=== PATIENT | female | born 1950 | race Caucasian/White ===

== ENCOUNTER 2016-06-27 13:01 | Emergency (ER) | payer OTHER ==
--- NOTE | 2016-06-27 14:48 | XR ---
EXAMINATION TYPE: XR chest 2V DATE OF EXAM: 06/27/2016 2:30 PM COMPARISON: Prior chest x-ray 30 December 2015 HISTORY: Cough TECHNIQUE: Frontal and lateral views of the chest are obtained. FINDINGS: There is no focal air space opacity, pleural effusion, or pneumothorax seen. The cardiac silhouette size is within normal limits. The osseous structures are intact. IMPRESSION: No acute cardiopulmonary process.
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
[2016-06-27 15:47] VITALS: BP 131/79; PULSE 83; RESP 16; TEMP 98.7
== END 2016-06-27 15:46 | disposition home or self-care (01) ==
LOC: EC 13:01
DX: J10.1 Influenza due to other identified influenza virus with other respiratory manifestations (principal); I10 Essential (primary) hypertension; K21.9 Gastro-esophageal reflux disease without esophagitis; Z88.8 Allergy status to other drugs, medicaments and biological substances; Z79.899 Other long term (current) drug therapy; Z88.2 Allergy status to sulfonamides; Z88.1 Allergy status to other antibiotic agents; Z88.5 Allergy status to narcotic agent
CPT/HCPCS: 71020; 87081; 87430; 87502; 99284

== ENCOUNTER → 2016-08-06 | Outpatient (CLI) | payer OTHER ==
--- NOTE | 2016-08-06 17:18 | CT ---
EXAMINATION TYPE: CT lumbar spine wo con DATE OF EXAM: 08/06/2016 8:40 AM COMPARISON: NONE HISTORY: amy flank pain, back and Lt hip pain radiating down Lt leg CT DLP: None, images reconstructed from Abd/Pelvis mGycm CONTRAST: None TECHNIQUE: CT of the lumbar spine is performed on a spiral scan at 3 mm thick sections. Reconstructed images are performed in the coronal and sagittal planes. FINDINGS: T12-L1: No focal disc herniation or significant disc bulge is evident. No spinal canal stenosis or neural foraminal stenosis is present. L1-L2: No focal disc herniation or significant disc bulge is evident. No spinal canal stenosis or n eural foraminal stenosis is present L2-L3: There is mild disc bulge present with anterior thecal sac compression. No AP spinal canal sten osis is present. Neural foramen are patent. L3-L4: Mild disc bulge is present. No spinal canal stenosis or neural foraminal stenosis is present. L4-L5: Broad-based disc bulge is present with anterior thecal sac flattening. Facet hypertrophy is pr esent with posterior lateral thecal sac compression. Neural foramen are patent. L5-S1: There is loss of disc height. Vacuum disc phenomenon is present. No focal disc herniation is e vident. No significant disc bulge is evident. Mild facet hypertrophy is present. Neural foramen are p atent. Vertebral alignment appears normal. Note is made of multiple left inferior pole renal stones IMPRESSION: 1. Disc bulging greatest at L4-5 with anterior thecal sac flattening. 2. Facet hypertrophy L4-5 and L5-S1. 3. Degenerative disc changes and vacuum disc phenomenon L5-S1. 4. Inferior pole left renal stones. No obstruction is evident within the [id number].
--- NOTE | 2016-08-06 17:23 | CT ---
EXAMINATION TYPE: CT abdomen pelvis wo con DATE OF EXAM: 08/06/2016 8:43 AM COMPARISON: 05/19/2010 INDICATION: amy flank pain, back and Lt hip pain radiating down Lt leg DLP: 388.1 mGycm, Automated exposure control for dose reduction was used. CONTRAST: None Study performed without Oral Contrast TECHNIQUE: Axial images were obtained from above the diaphragm to the pubic rami in the axial plane a t 5 mm thick sections. Reconstructed images are reviewed on the computer in the coronal plane. FINDINGS: Limited CT sections are obtained the lung bases. The lung bases are clear. CT ABDOMEN: Liver: Normal Spleen: This appears small. Residual splenules could be present or the spleen could be contracted. No surgical clips are evident. Pancreas: Normal Adrenal glands: The adrenal glands are normal. Gallbladder: Normal Kidneys: No masses are evident. There may be some minimal prominences superior pole left renal collec ting system. Multiple calcifications are at the inferior pole left kidney. The largest measures 0.9 c m. Additional cortical medullary junction calcification on the posterior inferior pole measures 1.8 x 0.7 cm. Additional cortical calcifications more superior within the mid portion of the left kidney. No large calcifications within the right kidney. A few cortical medullary punctate calcifications are present. No hydronephrosis is evident. Mild left hydroureter may be present. No obstructing renal or ureteral stone is evident. No cysts are present. Aorta: Vascular calcification is within the aorta. Inferior vena cava: Normal. CT PELVIS: Loops of bowel within the abdomen and pelvis are normal. There are loops of bowel which are incom pletely distended or lack oral contrast limiting their evaluation. Appendix: Not identified Urinary bladder: Normal. Genitourinary structures: Uterus is not identified. Adnexal regions are clear. No free fluid is withi n the pelvis. Osseous structures: No suspicious lytic or sclerotic lesions. Some facet degenerative changes through the lumbar spine. IMPRESSIONS: 1. Multiple large left renal calcifications without obstruction. Minimal prominence of the left arun l collecting system may be present without an obstructing renal or ureteral stone. 2. Few punctate cortical medullary junction calcifications within the right kidney without obstructio n. 3. Small Spleen is poorly visualized. This could be a infarct the spleen. Posttraumatic or postsurgic al splenule be considered.
== END ==
LOC: RADCTMAIN 07:53
PROVIDERS: ATTEND Family Medicine
DX: M51.26 Other intervertebral disc displacement, lumbar region (principal); M51.37 Other intervertebral disc degeneration, lumbosacral region; N20.0 Calculus of kidney
CPT/HCPCS: 72131; 74176

== ENCOUNTER → 2017-05-03 | Outpatient (CLI) | payer BC ==
--- NOTE | 2017-05-03 15:21 | BD ---
EXAMINATION TYPE: MG DEXA axial skeleton. DATE OF EXAM: 05/03/2017 CLINICAL HISTORY: Height: 60 inches Weight: 144 FRAX RISK QUESTIONS: Alcohol (3 or more units per day): no Family History (Parent hip fracture): no Glucocorticoids (More than 3mos): no (Ex: prednisone, prednisolone, methylprednisolone, dexamethasone, and hydrocortisone). History of Fracture in Adulthood: no Secondary Osteoporosis: 1. Type 1 Diabetes: no 2. Hyperthyroidism: no 3. Menopause before 45: no 4. Malnutrition: no 5. Chronic liver disease: no Rheumatoid Arthritis: no Current Tobacco Use: no RISK FACTORS HISTORY OF: Family History of Osteoporosis: no Active: yes Diet low in dairy products/other sources of calcium: yes because of kidney stone formation Postmenopausal woman: yes Take estrogen and/or progesterone medications: not now How long: hormonal contraceptives about 2 years Lost more than 2 inches in height since high school: no Frequent falls: no Poor Health: no Hyperparathyroidism: no Adrenal Insufficiency: no MEDICATIONS: Prednisone or other steroids: no Thyroid Medications: not now Which medication: Synthroid How Lon or more years Osteoporosis Medications: no Additional Medications: blood pressure meds, just started cholesterol meds Additional History: kidney stones; back pain EXAM MEASUREMENTS: Bone mineral densitometry was performed using the [employer] System. Bone mineral density as measured about the Lumbar spine is: ----- L1-L4(G/cm2): 1.318 T Score Values are as follows: ----- L2: 0.1 ----- L3: 1.2 ----- L4: 2.3 ----- L1-L4: 1.1 Bone mineral density has: Decreased -1.5% since study of: 03/27/2004 Bone mineral density about the R hip (g/cm2): 0.908 (1.040) Bone mineral density about the L hip (g/cm2): 0.908 (1.040) T Score values are as follows: -----R Neck: -0.9 (old study 0.0) -----L Neck: -0.9 (old study 0.0) -----R Total: 0.0 -----L Total: 0.1 (old study 1.3) Bone mineral density 03/27/2004 not completely available on right hip to trend IMPRESSION: No evidence for osteoporosis or osteopenia. NOTE: T-SCORE=SD OF THE YOUNG ADULT MEAN.
== END | disposition home or self-care (01) ==
LOC: RADBDWWP 12:48
PROVIDERS: ATTEND Family Medicine
DX: Z13.820 Encounter for screening for osteoporosis (principal)
CPT/HCPCS: 77080

== ENCOUNTER → 2017-06-03 | Outpatient (CLI) | payer BC, MEDICARE ==
--- NOTE | 2017-06-07 08:46 | MM ---
Reason for exam: screening (asymptomatic). Last mammogram was performed 2 years and 4 months ago. History: Patient is postmenopausal. Ultrasound-guided core biopsy of the left breast, November 14, 2002. Benign cyst aspiration of the left breast. Took hormonal contraceptives for 2 years. Physical Findings: A clinical breast exam by your physician is recommended on an annual basis and results should be correlated with mammographic findings. MG Screening Mammo w CAD Bilateral CC and MLO view(s) were taken. Prior study comparison: February 07, 2015, bilateral MG screening mammo w CAD. February 05, 2014, bilateral MG screening mammo w CAD. The breast tissue is heterogeneously dense. This may lower the sensitivity of mammography. Finding: There is a stable mass in the upper outer quadrant of the left breast back to 2012. No suspicious abnormality. No significant changes in finding since February 07, 2015 and February 05, 2014. ASSESSMENT: Benign, BI-RAD 2 RECOMMENDATION: Routine screening mammogram of both breasts in 1 year.
== END | disposition home or self-care (01) ==
LOC: RADMAMWWP 14:26
PROVIDERS: ATTEND Family Medicine
DX: Z12.31 Encounter for screening mammogram for malignant neoplasm of breast (principal)

== ENCOUNTER → 2017-08-04 | Outpatient (CLI) | payer BC, MEDICARE ==
[2017-08-04 09:57] LABS: Blood Urea Nitrogen 16 mg/dL (7-17)
--- NOTE | 2017-08-04 11:26 | CT ---
EXAMINATION TYPE: CT angio chest DATE OF EXAM: 08/04/2017 COMPARISON: NONE HISTORY: PE. Lymphadenopathy CT DLP: 477.64 mGycm CONTRAST: CT chest with contrast and 3D reconstruction with MIP imaging is performed with IV Contrast, patient injected with 100 ml mL of Omnipaque 350. Contrast-enhanced CT of the chest was performed through the course of the pulmonary arteries with samuel g and mediastinal window settings submitted. 3D reconstruction with MIP imaging was also performed. PULMONARY ARTERIES: The pulmonary arteries and their major tributaries are patent. I do not see dada dence for sizable filling defect to suggest pulmonary embolic process. LUNGS: The lungs are clear and free of infiltrate. No evidence for atelectasis. No pulmonary nodule or mass is detected. No pleural effusion. MEDIASTINUM: Thoracic aorta is of normal caliber,however, evaluation is limited given timing of the contrast bolus. If there is concern for thoracic aortic pathology consider TULIO. Correlate clinicall y . The heart is mildly small sliding-type hiatal hernia. enlarged. No evidence for mediastinal mass . AP window and right paratracheal lymph nodes less than 1 cm. HILAR STRUCTURES: No evidence for mass. No hilar lymph nodes greater than 1 cm. UPPER ABDOMEN: No significant abnormality is seen. IMPRESSION: 1. No evidence for Pulmonary embolism at this time. 2. No evidence for adenopathy. 3. Small sliding-type hiatal hernia.
--- NOTE | 2017-08-04 11:35 | CT ---
EXAMINATION TYPE: CT abdomen pelvis w con DATE OF EXAM: 08/04/2017 COMPARISON: 05/22/2017 HISTORY: PE. Lymphadenopathy. CT DLP: 1257.99 mGycm CONTRAST: CT scan of the abdomen and pelvis is performed with Oral Contrast and with IV Contrast, patient injec ngoc with 100 ml mL of Omnipaque 350. FINDINGS: LUNG BASES-: No visible nodule. No infiltrate. Small sliding-type hiatal hernia. LIVER/GB: No calcified gallstones. Mild hepatic steatosis noted. No space occupying hepatic lesion . Biliary tree is of normal caliber. PANCREAS: No inflammation. No distinct mass. SPLEEN: Stable splenules left upper quadrant. ADRENALS: No nodule. No thickening. KIDNEYS/BLADDER: No hydronephrosis. Stable calcified lesion mid pole left kidney posteriorly. Noelle us nonobstructing calculi left kidney. Diminutive left kidney relative to its right-sided counterpart . Several cystic lesions right kidney remain stable. Urinary bladder grossly unremarkable. BOWEL: Normal bowel caliber. No inflammation. GENITAL ORGANS: Uterus appears surgically absent. LYMPH NODES: Small lymph nodes are within the small bowel mesentery all measure less than 1 cm. No a denopathy greater than 1 cm. No greater than 1cm abdominal or pelvic lymph nodes are appreciated. AORTA: No significant abnormality. OSSEOUS STRUCTURES: No significant abnormality is seen. OTHER: Persistent filling defect within the right common iliac vein unchanged from prior examination and may reflect chronic DVT. IMPRESSION: 1. 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 No significant change in its overall appearance . 2. No evidence for adenopathy greater than 1 cm. 3. Stable nonobstructing left-sided nephrolithiasis.
== END | disposition home or self-care (01) ==
LOC: RADCTMAIN 09:05
PROVIDERS: ATTEND Internal Medicine Hematology & Oncology
DX: K44.9 Diaphragmatic hernia without obstruction or gangrene (principal); I82.521 Chronic embolism and thrombosis of right iliac vein; N20.0 Calculus of kidney; Z86.711 Personal history of pulmonary embolism
CPT/HCPCS: 82565; 84520; 71275; 74177; 36415; Q9967

== ENCOUNTER → 2017-10-04 | Outpatient (CLI) | payer BC, MEDICARE ==
--- NOTE | 2017-10-04 13:17 | XR ---
EXAMINATION TYPE: XR abdomen 1V DATE OF EXAM: 10/04/2017 12:56 PM CLINICAL HISTORY: Kidney stones per order TECHNIQUE: Two supine KUB images of the abdomen are obtained. COMPARISON: CT abdomen and pelvis August 04, 2017. Abdominal x-ray March 16, 2017. FINDINGS: There is redemonstration of multiple left-sided renal calculi with groups of calculi mid an d lower pole level redemonstrated. Largest stones measure up to 12 mm on long axis. There may be inte rval passage of 5 mm calculus in ureter at left L4 transverse process level. No definite right-sided renal calculi are seen. There is overall nonobstructive bowel gas pattern. Loss of normal haustral pattern left colon could r eflect a colitis, correlate clinically. Visualized osseous structures are intact. IMPRESSION: Multiple left-sided renal calculi redemonstrated, possible interval passage of 5 mm calcu jesus into proximal to mid left ureter.
== END | disposition home or self-care (01) ==
LOC: RADXRMAIN 12:43
PROVIDERS: ATTEND Urology
DX: N20.0 Calculus of kidney (principal)
CPT/HCPCS: 74018

== ENCOUNTER 2017-10-05 20:16 | Emergency (ER) | payer BC, MEDICARE ==
[2017-10-05 20:24] VITALS: RESP 18; TEMP 97.6
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
[2017-10-05 21:29] VITALS: BP 122/70; PULSE 94
== END 2017-10-05 21:29 | disposition home or self-care (01) ==
LOC: EC 20:16
DX: L25.9 Unspecified contact dermatitis, unspecified cause (principal); E78.5 Hyperlipidemia, unspecified; I10 Essential (primary) hypertension; G47.30 Sleep apnea, unspecified; Z79.899 Other long term (current) drug therapy; Z88.1 Allergy status to other antibiotic agents; Z88.2 Allergy status to sulfonamides; Z88.5 Allergy status to narcotic agent; Z99.89 Dependence on other enabling machines and devices
CPT/HCPCS: 99282

== ENCOUNTER 2017-10-22 21:22 | Observation (INO) | payer BC, MEDICARE ==
[2017-10-22] MEDS ORDERED: NITROGLYCERIN OINT 1 INCH/GM PACKET TOPICAL STA (22:32)
[2017-10-22] MEDS ORDERED: ASPIRIN 81 MG PO STA (22:32)
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
[2017-10-22 23:10] LABS: Basophils # (A) 0.1 k/uL (0-0.2); Basophils % (A) 1 %; Eosinophils # (A) 0.3 k/uL (0-0.7); Eosinophils % (A) 3 %; HCT 43.8 % (34.0-46.0); HGB 14.2 gm/dL (11.4-16.0); Lymphocytes % (A) 43 %; MCHC 32.4 g/dL (31.0-37.0); MCV 86.5 fL (80.0-100.0); Mean Platelet Volume 6.4; Monocytes % (A) 9 %; Neutrophils # (A) 4.8 k/uL (1.3-7.7); Neutrophils % (A) 42 %; Platelet Count 498 k/uL (150-450); RBC 5.06 m/uL (3.80-5.40); RDW 14.3 % (11.5-15.5); WBC 11.4 k/uL (3.8-10.6)
[2017-10-22 23:13] LABS: Creatine Kinase 65 U/L (30-135)
[2017-10-22 23:14] LABS: ALT 31 U/L (9-52); AST 30 U/L (14-36); Albumin 4.2 g/dL (3.5-5.0); Alkaline Phosphatase 116 U/L (38-126); Anion Gap 12 mmol/L; Blood Urea Nitrogen 16 mg/dL (7-17); Calcium 10.6 mg/dL (8.4-10.2); Carbon Dioxide 26 mmol/L (22-30); Chloride 106 mmol/L (98-107); Glucose 95 mg/dL (74-99); Magnesium 1.9 mg/dL (1.6-2.3); Potassium 4.8 mmol/L (3.5-5.1); Sodium 144 mmol/L (137-145); Total Bilirubin 0.7 mg/dL (0.2-1.3); Total Protein 7.3 g/dL (6.3-8.2)
[2017-10-22 23:19] LABS: Lymphocytes # (A) 4.9 k/uL (1.0-4.8)
[2017-10-22 23:25] LABS: Creatine Kinase MB 0.6 ng/mL (0.0-2.4); Troponin I <0.012 ng/mL (0.000-0.034)
[2017-10-22 23:34] LABS: D-Dimer 0.26 mg/L FEU (<0.60); Prothrombin Time 9.8 sec (9.0-12.0)
[2017-10-22 23:46] LABS: Partial Thromboplastin Time 21.7 sec (22.0-30.0)
[2017-10-23] MEDS ORDERED: NITROGLYCERIN SL TABS 0.4 MG TAB SUBLINGUAL PRN (00:06)
[2017-10-23 00:08] LABS: Anisocytosis (M) Present; Poikilocytosis (M) Present
[2017-10-23 00:11] LABS: Large Platelets Present
[2017-10-23 00:12] LABS: Polychromasia Present
--- NOTE | 2017-10-23 00:13 | XR ---
EXAMINATION TYPE: XR chest 2V DATE OF EXAM: 10/22/2017 COMPARISON: 06/27/2016 HISTORY: Chest pain TECHNIQUE: Frontal and lateral views of the chest are obtained. FINDINGS: Heart and mediastinum are normal. Lungs are clear. Diaphragm is normal. Bony thorax is int act. There are chest leads. IMPRESSION: Normal chest. No change.
[2017-10-23 00:41] VITALS: RESP 16
[2017-10-23 01:27] VITALS: BMI 26.8
[2017-10-23] MEDS ORDERED: NITROGLYCERIN OINT 1 INCH/GM PACKET TOPICAL SCH (06:00)
[2017-10-23 07:08] LABS: Creatine Kinase 493 U/L (30-135)
[2017-10-23 07:21] LABS: Creatine Kinase MB 2.2 ng/mL (0.0-2.4); Troponin I <0.012 ng/mL (0.000-0.034)
[2017-10-23] MEDS ORDERED: ASPIRIN 325 MG TAB PO SCH (09:00)
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
--- NOTE | 2017-10-23 09:13 | P.DS ---
Providers Date of admission: 10/23/17 00:06 Expected date of discharge: 10/23/17 Attending physician: Luis Ryan Consults: 10/23/17 00:06 Consult Physician Urgent Consulting Provider: [facility] Consult Reason/Comments: Chest pain Do you want consulting provider notified?: Yes Primary care physician: Luis Ryan - Discharge Diagnosis(es) (1) towel folder (current) use of anticoagulants Current Visit: Yes Status: Acute (2) History of pulmonary embolism Current Visit: Yes Status: Acute (3) History of DVT (deep vein thrombosis) Current Visit: Yes Status: Acute (4) Zoster Current Visit: Yes Status: Acute (5) Post herpetic neuralgia Current Visit: Yes Status: Acute (6) Abdominal pain Current Visit: No Status: Acute (7) Hypercalcemia Current Visit: No Status: Acute (8) Hypertension Current Visit: No Status: Acute (9) Pulmonary embolism Current Visit: No Status: Acute Priority: High Hospital Course: his is a pleasant 67-year-old white female well-known to me. She has a history of DVT and PE him an admission in May 2017. She is currently anticoagulated on Elequis. She been experiencing symptoms of right-sided burning searing pain and rash. This is diagnosed as shingles. She's had a course of acyclovir, which is still on. Gabapentin was started to control pain. Her symptoms worsen and on fears of recurrent pulmonary embolism she return to the emergency room. She also has a history of kidney stones. Currently she denies any chest pains, pressures, shortness of breath, nausea, vomiting. She does complain of right sided abdominal pain at the rash site extending from her midline around to her back in a dermatomal pattern. This is the only pain she is experiencing. Last night the pain seemed to be a slightly higher than this but still on her abdomen. Her symptoms continue this morning. Troponins 2 are negative. EKG is negative. Final diagnosis: Right-sided abdominal pain Postherpetic neuralgia Zoster History DVT/pulmonary embolism Long-term anticoagulation. Hypertension Hyperlipidemia GERD Patient Condition at Discharge: Fair Plan - Discharge Summary New Discharge Prescriptions: Continue Metoprolol Tartrate [Lopressor] 25 mg PO DAILY Lisinopril [Prinivil] 20 mg PO DAILY Atorvastatin [Lipitor] 40 mg PO DAILY Apixaban [Eliquis] 5 mg PO BID #60 tab Pantoprazole [Protonix] 40 mg PO DAILY #30 tab Changed Gabapentin [Neurontin] 300 mg PO TID #90 cap Discharge Medication List Lisinopril [Prinivil] 20 mg PO DAILY 11/15/14 [History] Metoprolol Tartrate [Lopressor] 25 mg PO DAILY 11/15/14 [History] Atorvastatin [Lipitor] 40 mg PO DAILY 05/22/17 [History] Apixaban [Eliquis] 5 mg PO BID #60 tab 05/26/17 [Rx] Pantoprazole [Protonix] 40 mg PO DAILY #30 tab 05/26/17 [Rx] Gabapentin [Neurontin] 300 mg PO TID #90 cap 10/23/17 [Rx] Follow up Appointment(s)/Referral(s): Luis Ryan MD [Primary Care Provider] - 1-2 days Ila Ortiz MD [STAFF PHYSICIAN] - 1 Week Discharge Disposition: HOME SELF-CARE
[2017-10-23 09:26] VITALS: BP 122/65; PULSE 71; TEMP 98
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
== END 2017-10-23 10:27 | disposition home or self-care (01) ==
LOC: EC 21:22 → 3SUR 10-23 00:06
PROVIDERS: ADMIT Family Medicine; ATTEND Family Medicine
DX: R07.89 Other chest pain (principal); B02.9 Zoster without complications; B02.29 Other postherpetic nervous system involvement; E83.52 Hypercalcemia; K21.9 Gastro-esophageal reflux disease without esophagitis; I10 Essential (primary) hypertension; E78.5 Hyperlipidemia, unspecified; G47.30 Sleep apnea, unspecified; Z99.89 Dependence on other enabling machines and devices; G43.909 Migraine, unspecified, not intractable, without status migrainosus; K57.90 Diverticulosis of intestine, part unspecified, without perforation or abscess without bleeding; E07.9 Disorder of thyroid, unspecified; Z86.711 Personal history of pulmonary embolism; Z87.442 Personal history of urinary calculi; Z86.718 Personal history of other venous thrombosis and embolism; Z79.01 Long term (current) use of anticoagulants; Z79.899 Other long term (current) drug therapy; Z79.52 Long term (current) use of systemic steroids; Z88.1 Allergy status to other antibiotic agents; Z88.5 Allergy status to narcotic agent; Z88.2 Allergy status to sulfonamides; Z82.49 Family history of ischemic heart disease and other diseases of the circulatory system
CPT/HCPCS: 99285 ×2; 36415; 93005; 85379; 80053; 82550 ×2; 82553 ×2; 83735; 84484 ×2; 85025; 85610; 85730; 71046; G0378

== ENCOUNTER 2017-10-25 16:33 | Emergency (ER) | payer BC, MEDICARE ==
[2017-10-25 19:19] LABS: Appearance,Urine Cloudy (Clear); Bacteria,Urine Rare /hpf; Basophils # (A) 0.1 k/uL (0-0.2); Basophils % (A) 0 %; Bilirubin,Urine Negative (Negative); Blood,Urine Moderate (Negative); Color,Urine Yellow; Eosinophils # (A) 0.2 k/uL (0-0.7); Eosinophils % (A) 1 %; Glucose,Urine (UA) Negative (Negative); HGB 14.8 gm/dL (11.4-16.0); Ketones,Urine Negative (Negative); Leukocyte Esterase,Urine Moderate (Negative); Lymphocytes # (A) 3.2 k/uL (1.0-4.8); Lymphocytes % (A) 16 %; MCH 29.6 pg (25.0-35.0); MCHC 34.3 g/dL (31.0-37.0); MCV 86.2 fL (80.0-100.0); Mean Platelet Volume 6.6; Monocytes % (A) 5 %; Mucus,Urine Rare /hpf; Neutrophils # (A) 14.7 k/uL (1.3-7.7); Neutrophils % (A) 76 %; Nitrite,Urine Negative (Negative); Platelet Count 492 k/uL (150-450); Protein,Urine Trace (Negative); RBC 4.99 m/uL (3.80-5.40); RBC,Urine 110 /hpf (0-5); RDW 14.2 % (11.5-15.5); Specific Gravity,Urine 1.015 (1.001-1.035); Squamous Epithelial Cell,Urine 2 /hpf (0-4); Urobilinogen,Urine <2.0 mg/dL (<2.0); WBC 19.4 k/uL (3.8-10.6); WBC,Urine 24 /hpf (0-5)
[2017-10-25 19:36] LABS: ALT 32 U/L (9-52); AST 27 U/L (14-36); Albumin 4.5 g/dL (3.5-5.0); Alkaline Phosphatase 112 U/L (38-126); Amylase 59 U/L (30-110); Anion Gap 16 mmol/L; Blood Urea Nitrogen 19 mg/dL (7-17); Calcium 10.4 mg/dL (8.4-10.2); Carbon Dioxide 21 mmol/L (22-30); Chloride 107 mmol/L (98-107); Glucose 112 mg/dL (74-99); Lipase 118 U/L (23-300); Potassium 4.4 mmol/L (3.5-5.1); Sodium 144 mmol/L (137-145); Total Bilirubin 0.5 mg/dL (0.2-1.3); Total Protein 7.5 g/dL (6.3-8.2)
[2017-10-25] MEDS ORDERED: ONDANSETRON 4 MG/2 ML VIAL IVP STA (20:21)
[2017-10-25] MEDS ORDERED: SODIUM CHLORIDE 0.9% 1,000 ML IV STA (20:21)
[2017-10-25] MEDS ORDERED: ACETAMINOPHEN IV (For NPO) 1,000 MG in EMPTY BAG 1 BAG IVPB STA (20:23)
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
--- NOTE | 2017-10-25 21:05 | CT ---
EXAMINATION TYPE: CT abdomen pelvis wo con DATE OF EXAM: 10/25/2017 COMPARISON: 08/04/2017 HISTORY: Left side flank pain and vomiting. CT DLP: 446.7 mGycm Automated exposure control for dose reduction was used. TECHNIQUE: Helical acquisition of images was performed from the lung bases through the pelvis. FINDINGS: There is some minimal subsegmental atelectasis at the lung bases. Liver shows no focal defect. Bile d ucts are not dilated. There is a small spleen or accessory spleens. There is no evidence of pancreati c mass. There is no adrenal mass. There is moderately severe left-sided hydronephrosis and hydroureter. There is 7 mm calculus in the lower left ureter. Right kidney appears normal without hydronephrosis. There is no retroperitoneal adenopathy. There is a 12 mm small bowel mesenteric lymph node. There are a few diverticula in the sigmoid colon. There is no sign of diverticulitis. Bladder distend s smoothly. There is no evidence of a bowel obstruction. There is no free air. There is no ascites. T here are multiple left renal calcifications. I see no bony destructive process. IMPRESSION: OBSTRUCTING CALCULUS IN THE LOWER LEFT URETER WITH MODERATE LEFT HYDRONEPHROSIS AND HYDROURETER. THIS IS NEW COMPARED TO THE OLD EXAM. MULTIPLE LEFT RENAL CALCULI.
[2017-10-25] MEDS ORDERED: KETOROLAC 30 MG/ML 1 ML VIAL IVP STA (21:22)
[2017-10-25 23:06] VITALS: BP 125/68; PULSE 76; RESP 16; TEMP 97.5
== END 2017-10-25 23:05 | disposition home or self-care (01) ==
LOC: EC 16:33
DX: N13.2 Hydronephrosis with renal and ureteral calculous obstruction (principal); E78.5 Hyperlipidemia, unspecified; I10 Essential (primary) hypertension; G47.30 Sleep apnea, unspecified; Z99.89 Dependence on other enabling machines and devices; Z86.711 Personal history of pulmonary embolism; Z86.718 Personal history of other venous thrombosis and embolism; Z87.19 Personal history of other diseases of the digestive system; Z90.710 Acquired absence of both cervix and uterus; Z98.51 Tubal ligation status; Z90.49 Acquired absence of other specified parts of digestive tract; Z79.899 Other long term (current) drug therapy; Z88.1 Allergy status to other antibiotic agents; Z88.2 Allergy status to sulfonamides; Z88.5 Allergy status to narcotic agent
CPT/HCPCS: 36415; 80053; 82150; 83690; 85025; 81001; 74176; 99284; 96374; 96375 ×2; 96361; J2405; J1885; J0131

== ENCOUNTER → 2017-11-02 | Outpatient (CLI) | payer BC, MEDICARE ==
--- NOTE | 2017-11-02 15:21 | XR ---
EXAMINATION TYPE: XR KUB DATE OF EXAM: 11/02/2017 COMPARISON: 03/16/2017 INDICATION: Renal calculi TECHNIQUE: Single view abdomen upright view FINDINGS: There is a normal bowel gas pattern. Psoas margins are normal. No organomegaly is present. Multiple calcifications over the superior and inferior pole left kidney. The largest calcification is estimated at 0.6 x 1.1 cm. IMPRESSION: 1. Multiple stable left renal calcifications.
== END | disposition home or self-care (01) ==
LOC: RADXRMAIN 14:44
PROVIDERS: ATTEND Urology
DX: N28.89 Other specified disorders of kidney and ureter (principal)
CPT/HCPCS: 74018

== ENCOUNTER 2017-12-10 22:26 | Emergency (ER) | payer BC, MEDICARE, OTHER ==
[2017-12-10 22:53] VITALS: BP 123/69; PULSE 71; RESP 18; TEMP 97.9
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
== END 2017-12-10 23:33 | disposition home or self-care (01) ==
LOC: EC 22:26
DX: S09.90XA Unspecified injury of head, initial encounter (principal); E78.5 Hyperlipidemia, unspecified; I10 Essential (primary) hypertension; G47.30 Sleep apnea, unspecified; Z99.89 Dependence on other enabling machines and devices; Z79.899 Other long term (current) drug therapy; Z88.2 Allergy status to sulfonamides; Z88.5 Allergy status to narcotic agent; Z88.8 Allergy status to other drugs, medicaments and biological substances; W50.1XXA Accidental kick by another person, initial encounter; Y92.89 Other specified places as the place of occurrence of the external cause; Y99.0 Civilian activity done for income or pay
CPT/HCPCS: 99283

== ENCOUNTER → 2017-12-12 | Outpatient (CLI) | payer OTHER ==
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
== END | disposition home or self-care (01) ==
LOC: RADCTMAIN 12:16
PROVIDERS: ATTEND Emergency Medicine
DX: S00.83XA Contusion of other part of head, initial encounter (principal); J34.2 Deviated nasal septum; M89.8X8 Other specified disorders of bone, other site
CPT/HCPCS: 70486

== ENCOUNTER → 2017-12-13 | Outpatient (CLI) | payer OTHER ==
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
== END | disposition home or self-care (01) ==
LOC: RADCTMAIN 10:55
PROVIDERS: ATTEND Emergency Medicine
DX: G31.1 Senile degeneration of brain, not elsewhere classified (principal)
CPT/HCPCS: 70450

== ENCOUNTER 2018-01-22 13:37 | Emergency (ER) | payer BC, MEDICARE ==
[2018-01-22 14:04] VITALS: BP 127/84; PULSE 75; RESP 16; TEMP 98.2
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
== END 2018-01-22 15:40 | disposition home or self-care (01) ==
LOC: EC 13:37
DX: T63.441A Toxic effect of venom of bees, accidental (unintentional), initial encounter (principal); E78.5 Hyperlipidemia, unspecified; I10 Essential (primary) hypertension; E07.9 Disorder of thyroid, unspecified; G47.30 Sleep apnea, unspecified; Z99.89 Dependence on other enabling machines and devices; Z86.711 Personal history of pulmonary embolism; Z86.718 Personal history of other venous thrombosis and embolism; Z79.899 Other long term (current) drug therapy; Z88.1 Allergy status to other antibiotic agents; Z88.5 Allergy status to narcotic agent; Z88.2 Allergy status to sulfonamides
CPT/HCPCS: 99282

== ENCOUNTER → 2018-01-26 | Outpatient (CLI) | payer BC, MEDICARE ==
[2018-01-26 11:48] LABS: Basophils # (A) 0.1 k/uL (0-0.2); Basophils % (A) 1 %; Eosinophils # (A) 0.3 k/uL (0-0.7); Eosinophils % (A) 3 %; HCT 47.1 % (34.0-46.0); HGB 15.2 gm/dL (11.4-16.0); Lymphocytes # (A) 3.8 k/uL (1.0-4.8); Lymphocytes % (A) 45 %; MCH 28.8 pg (25.0-35.0); MCHC 32.3 g/dL (31.0-37.0); MCV 89.1 fL (80.0-100.0); Mean Platelet Volume 6.6; Monocytes # (A) 0.7 k/uL (0-1.0); Monocytes % (A) 9 %; Neutrophils # (A) 3.4 k/uL (1.3-7.7); Neutrophils % (A) 40 %; Platelet Count 518 k/uL (150-450); RBC 5.29 m/uL (3.80-5.40); RDW 13.1 % (11.5-15.5); WBC 8.4 k/uL (3.8-10.6)
[2018-01-26 12:05] LABS: Anion Gap 8 mmol/L; Blood Urea Nitrogen 13 mg/dL (7-17); Calcium 9.7 mg/dL (8.4-10.2); Carbon Dioxide 25 mmol/L (22-30); Chloride 109 mmol/L (98-107); Glucose 86 mg/dL (74-99); Potassium 4.7 mmol/L (3.5-5.1); Sodium 142 mmol/L (137-145)
[2018-01-26 12:37] LABS: Appearance,Urine Clear (Clear); Bacteria,Urine Rare /hpf; Bilirubin,Urine Negative (Negative); Blood,Urine Negative (Negative); Color,Urine Light Yellow; Glucose,Urine (UA) Negative (Negative); Ketones,Urine Negative (Negative); Leukocyte Esterase,Urine Large (Negative); Nitrite,Urine Negative (Negative); Protein,Urine Negative (Negative); RBC,Urine 1 /hpf (0-5); Specific Gravity,Urine 1.005 (1.001-1.035); Squamous Epithelial Cell,Urine <1 /hpf (0-4); Urobilinogen,Urine <2.0 mg/dL (<2.0); WBC,Urine 43 /hpf (0-5)
== END | disposition home or self-care (01) ==
LOC: LABPAT 10:57
PROVIDERS: ATTEND Urology
DX: Z01.812 Encounter for preprocedural laboratory examination (principal); N20.0 Calculus of kidney; E78.00 Pure hypercholesterolemia, unspecified; R35.0 Frequency of micturition; R31.29 Other microscopic hematuria
CPT/HCPCS: 36415; 80048; 81001; 85025; 87086

== ENCOUNTER 2018-02-01 06:14 | Observation (INO) | payer BC, MEDICARE ==
[2018-01-27 15:46] VITALS: BMI 27.3
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
[~2018-02-01 06:14] MED LIST: DEXAMETHASONE SOD PHOSPHATE 10 MG/ML 1 ML VIAL IV ONE; LIDOCAINE 1% 20 ML VIAL (10MG/ML) FOR IV START INTRADERMA PRN; MIDAZOLAM 2 MG/2 ML VIAL IV PRN; ONDANSETRON 4 MG/2 ML VIAL IVP ONE; ceFAZolin IN SWFI 2 GM/20 ML SYRINGE IVP ONE; fentaNYL (PF) 50 MCG/ML 2 ML AMP IV PRN; metroNIDAZOLE-NS PMX 500 MG in SALINE 1 100ML.BAG IVPB ONE
[2018-02-01] MEDS ORDERED: ONDANSETRON 4 MG/2 ML VIAL ONE (06:37)
[2018-02-01] MEDS: LACTATED RINGERS 1,000 ML IV SCH ×2 (06:58→12:18)
[2018-02-01] MEDS ORDERED: ePHEDrine SULFATE/0.9% NACL/PF 50 MG/5 ML SYRINGE IV ONE (07:28)
[2018-02-01] MEDS ORDERED: SUCCINYLCHOLINE CHLORIDE 100 MG/5 ML SYR IV ONE (07:28)
[2018-02-01] MEDS ORDERED: MIDAZOLAM 2 MG/2 ML VIAL ONE (07:28)
[2018-02-01] MEDS ORDERED: ROCURONIUM BROMIDE 10 MG/ML 10 ML VIAL IV ONE (07:28)
[2018-02-01] MEDS ORDERED: NEOSTIGMINE 1 MG/ML 10 ML VIAL ONE (07:28)
[2018-02-01] MEDS ORDERED: GLYCOPYRROLATE 0.2 MG/ML 2 ML VIAL ONE (07:28)
[2018-02-01] MEDS ORDERED: LIDOCAINE 1% INJ 10MG/ML (20 ML MDV) ONE (07:28)
[2018-02-01] MEDS ORDERED: PROPOFOL 10 MG/ML 20 ML VIAL IV ONE (07:28)
--- NOTE | 2018-02-01 07:37 | XR ---
EXAMINATION TYPE: XR KUB DATE OF EXAM: 02/01/2018 COMPARISON: 11/02/2017 INDICATION: Kidney stones TECHNIQUE: Single view abdomen frontal projection FINDINGS: There is a normal bowel gas pattern. Psoas margins are normal. No organomegaly is present. Multiple calcifications over the left kidney are stable. IMPRESSION: 1. Multiple stable left renal calcifications.
[2018-02-01] MEDS ORDERED: IOPAMIDOL-370 50ML BTL MISCELLANE ONE (08:05)
[2018-02-01] MEDS ORDERED: MAG HYDROX/AL HYDROX/SIMETH 30 ML CUP PO PRN (09:38)
[2018-02-01] MEDS ORDERED: ACETAMINOPHEN TAB 325 MG TAB PO PRN (09:38)
[2018-02-01] MEDS ORDERED: HYDROmorphone PCA 5 MG/25 ML SYRINGE IV PRN (09:40)
[2018-02-01] MEDS ORDERED: NALOXONE 0.4 MG/ML 1 ML VIAL IV PRN ×2 (09:40→09:51)
--- NOTE | 2018-02-01 09:49 | P.OP ---
Date of Procedure: 02/01/18 Preoperative Diagnosis: Left renal calculi Postoperative Diagnosis: Same, infundibular stenosis with calyceal diverticula Procedure(s) Performed: Cystoscopy, placement of 5-[place] occluding balloon catheter, percutaneous nephrostomy (Dr. Muir) percutaneous nephrostolithotomy infundibulotomy 2 upper pole calyx, calyceal diverticula, laser lithotripsy, placement of 10-[place] J nephrostomy Anesthesia: GETA Surgeon: Rodrigo Pedro Estimated Blood Loss (ml): 100 Pathology: other (Stone) Condition: stable Disposition: PACU Indications for Procedure: The patient is a 67-year-old female with recurrent nephrolithiasis. She has multiple renal stones causing discomfort. She comes for percutaneous nephrostolithotomy Description of Procedure: The patient is brought to the operating suite. She is given a general anesthesia on the transport gurney. She's placed in a frog position with a sterile prep and drape. Cystoscopy Foroblique lens and 22-[place] sheath identifies the left ureteral orifice which is intubated with a 5-[place] occluding balloon catheter. Catheters passed up into the renal pelvis and the secured to a 16-[place] Leslie. She's placed in a prone position. Sterile prep and drape was administered. Dr. Muir of radiology performed percutaneous access to the left lower pole calyx. We dilated to 30-[place]. We introduced the rigid sheath into the collecting system. We introduced the rigid scope into the collecting system and remove multiple stones in the left lower pole calyx. I then inspect under fluoroscopy the remaining stones in the upper pole calyx. Based on computed tomography scan there is a stone in a calyceal diverticulum and the other is parenchymal. I eventually pass a flexible nephroscope up to the calyx that contained the stone and finding significant infundibular stenosis. I cannot pass an 035 wire through the infundibulum. With the 200 laser probe I then do an infundibulotomy an open up into the calyceal diverticula. With the same 200 laser probe I break the stone into tiny pieces and flushes it out of the calyx. I do not attempt to go after the parenchymal stone. At this point time there are no remaining stones. I flush any debris out of the collecting system. A 10-[place] J nephrostomy tubes is placed and it is secured the skin with 2-0 silk. The patient's awake and returned recovery in good condition. Blood loss is approximately 100 mL. She will be placed in the hospital postoperatively.
[2018-02-01] MEDS ORDERED: fentaNYL PCA 300 MCG/30 ML SYRINGE IV PRN (09:51)
[2018-02-01] MEDS: DEXTROSE 5%-0.45% NACL 1,000 ML IV SCH ×2 (11:59→20:50)
[2018-02-01] MEDS: KETOROLAC 30 MG/ML 1 ML VIAL IVP SCH ×3 (12:21→23:32)
--- NOTE | 2018-02-01 12:44 | FL ---
EXAMINATION TYPE: FL Perc Nephrostomy New Access DATE OF EXAM: 02/01/2018 COMPARISON: NONE HISTORY: Nephrolithiasis. PROCEDURE: Maximal barrier technique was utilized. The skin overlying the left kidney was localized using fluor oscopy and the overlying skin prepped and draped. Lidocaine used for local anesthesia. Skin mike wa s made with a scalpel. Access was gained under fluoroscopy, following placement of a ureteral occlus ion balloon by the referring clinician and instillation of air in the renal collecting system with a 21-gauge needle to the lower pole left kidney. A suitable posterior calyx was chosen. A 0.018 inch wire was advanced. The access site was dilated and subsequently a sheath was advanced into the arun l pelvis following dilation with balloon along the tract. Urine returned in the hub of the catheter. The patient underwent nephrolithotomy by the referring clinician. The patient remained in stable co ndition without complication. The patient was discharged to observation. IMPRESSION: STATUS POST NEPHROSTOMY PLACEMENT FOR NEPHROLITHOTOMY WITH FLUOROSCOPIC GUIDANCE. THIS PROCEDURE PER FORMED BY THE UNDERSIGNED. 2 minutes 47 seconds fluoroscopy time, 2 intraoperative C-arm images docum ent the procedure
[2018-02-01] MEDS: GABAPENTIN 100 MG CAP PO SCH ×2 (16:22→21:00)
[2018-02-02] MEDS: KETOROLAC 30 MG/ML 1 ML VIAL IVP SCH ×4 (05:41→23:43)
[2018-02-02] MEDS: DEXTROSE 5%-0.45% NACL 1,000 ML IV SCH ×3 (05:43→23:44)
[2018-02-02] MEDS ORDERED: HYDROcodone/APAP 5-325MG 1 EACH TAB PO PRN (06:43)
--- NOTE | 2018-02-02 06:45 | P.DS ---
Providers Date of admission: 02/01/18 21:20 Attending physician: Rodrigo Pedro Primary care physician: [facility] Course: The patient was admitted yesterday 02/01/2018 for a left percutaneous nephrostolithotomy. She underwent this without difficulty. She did have an infundibulotomy to a calyx where there is a calyceal diverticulum stone. The stone was removed. She has one parenchymal stone. She did well overnight. Her pain is relatively long to control. If she ambulates has pain control and voids without difficulty she'll be discharged home later today. She'll go home with a nephrostomy tube she'll follow-up in the office next week for nephrostomy tube removal. Postoperative instructions have been given. She is given a prescription of [place]. Patient Condition at Discharge: Good Plan - Discharge Summary Discharge Rx Participant: Yes New Discharge Prescriptions: New HYDROcodone/APAP 5-325MG [[place] 5-325] 1 tab PO Q4HR PRN #14 tab PRN Reason: Pain Control No Action Metoprolol Tartrate [Lopressor] 50 mg PO DAILY Atorvastatin [Lipitor] 20 mg PO DAILY Gabapentin [Neurontin] 100 mg PO TID Ascorbic Acid [Vitamin C] 1,000 mg PO DAILY Garlic 1 tab PO DAILY Ergocalciferol (Vitamin D2) [Vitamin D2] 50,000 unit PO Q7D Lisinopril [Prinivil] 20 mg PO DAILY Discharge Medication List Metoprolol Tartrate [Lopressor] 50 mg PO DAILY 11/15/14 [History] Atorvastatin [Lipitor] 20 mg PO DAILY 05/22/17 [History] Ascorbic Acid [Vitamin C] 1,000 mg PO DAILY 10/25/17 [History] Gabapentin [Neurontin] 100 mg PO TID 10/25/17 [History] Garlic 1 tab PO DAILY 10/25/17 [History] Ergocalciferol (Vitamin D2) [Vitamin D2] 50,000 unit PO Q7D 01/27/18 [History] Lisinopril [Prinivil] 20 mg PO DAILY 02/01/18 [History] HYDROcodone/APAP 5-325MG [[place] 5-325] 1 tab PO Q4HR PRN #14 tab 02/02/18 [Rx] Follow up Appointment(s)/Referral(s): Rodrigo Pedro MD [STAFF PHYSICIAN] - 02/07/18 Activity/Diet/Wound Care/Special Instructions: Home with Nephrostomy tube Discharge Disposition: HOME SELF-CARE
[2018-02-02 08:22] VITALS: RESP 16
[2018-02-02] MEDS: METOPROLOL TARTRATE 50 MG TAB PO SCH (08:50)
[2018-02-02] MEDS: GABAPENTIN 100 MG CAP PO SCH ×3 (08:50→21:19)
[2018-02-02] MEDS: ONDANSETRON 4 MG/2 ML VIAL IVP PRN ×2 (12:54→23:48)
[2018-02-03] MEDS: KETOROLAC 30 MG/ML 1 ML VIAL IVP SCH ×2 (05:09→13:46)
[2018-02-03] MEDS: ONDANSETRON 4 MG/2 ML VIAL IVP PRN (05:10)
[2018-02-03 08:04] VITALS: BP 129/78; PULSE 72; TEMP 98.5
[2018-02-03] MEDS: METOPROLOL TARTRATE 50 MG TAB PO SCH (10:09)
[2018-02-03] MEDS: GABAPENTIN 100 MG CAP PO SCH (10:09)
== END 2018-02-03 14:05 | disposition home or self-care (01) ==
LOC: OR 06:14 → 3SUR 09:25 → OR 21:44
PROVIDERS: ADMIT Urology; ATTEND Urology
DX: N20.0 Calculus of kidney (principal); N28.89 Other specified disorders of kidney and ureter; J44.9 Chronic obstructive pulmonary disease, unspecified; K21.9 Gastro-esophageal reflux disease without esophagitis; I10 Essential (primary) hypertension; E78.5 Hyperlipidemia, unspecified; E04.9 Nontoxic goiter, unspecified; G43.909 Migraine, unspecified, not intractable, without status migrainosus; G47.33 Obstructive sleep apnea (adult) (pediatric); Z99.89 Dependence on other enabling machines and devices; K57.90 Diverticulosis of intestine, part unspecified, without perforation or abscess without bleeding; G62.9 Polyneuropathy, unspecified; F40.240 Claustrophobia; Z79.899 Other long term (current) drug therapy; Z88.1 Allergy status to other antibiotic agents; Z88.2 Allergy status to sulfonamides; Z88.5 Allergy status to narcotic agent; Z86.711 Personal history of pulmonary embolism; Z87.442 Personal history of urinary calculi; Z87.820 Personal history of traumatic brain injury; Z86.718 Personal history of other venous thrombosis and embolism; Z90.710 Acquired absence of both cervix and uterus; Z82.49 Family history of ischemic heart disease and other diseases of the circulatory system
CPT/HCPCS: 50081; 94760 ×3; 94762 ×2; 86900; 86901; 86850; 82365; 50432; 74018; G0378 ×3; C1769 ×6; C2628; C1729 ×2; C1894; J2250; J1100; J2710; J2405 ×3; J2001; J1885 ×3; J3010; J0330; J2704; J0690; Q9967

== ENCOUNTER → 2018-07-03 | Outpatient (CLI) | payer MEDICARE ==
--- NOTE | 2018-07-04 15:08 | MM ---
Reason for exam: screening (asymptomatic). Last mammogram was performed 1 year and 1 month ago. History: Patient is postmenopausal. Ultrasound-guided core biopsy of the left breast, November 14, 2002. Benign cyst aspiration of the left breast. Took hormonal contraceptives for 2 years. Physical Findings: A clinical breast exam by your physician is recommended on an annual basis and results should be correlated with mammographic findings. MG 3D Screening Mammo W/Cad Bilateral CC and MLO view(s) were taken. Prior study comparison: June 03, 2017, bilateral MG screening mammo w CAD. February 07, 2015, bilateral MG screening mammo w CAD. The breast tissue is heterogeneously dense. This may lower the sensitivity of mammography. There is chronic nodularity bilaterally. There is no discrete abnormality. No significant changes when compared with prior studies. ASSESSMENT: Benign, BI-RAD 2 RECOMMENDATION: Routine screening mammogram of both breasts in 1 year.
== END ==
LOC: RADMAMWWP 14:30
PROVIDERS: ATTEND Family Medicine
DX: Z12.31 Encounter for screening mammogram for malignant neoplasm of breast (principal)
CPT/HCPCS: 77063; 77067

== ENCOUNTER → 2018-08-22 | Outpatient (CLI) | payer MEDICARE ==
--- NOTE | 2018-08-22 11:19 | CT ---
EXAMINATION TYPE: CT brain wo con DATE OF EXAM: 08/22/2018 COMPARISON: 12/13/2017 HISTORY: 68-year-old female Headache and visual disturbances TECHNIQUE: Examination was done in axial plane without intravenous contrast. Coronal and sagittal r econstructions performed. CT DLP: 1017 mGycm Automated exposure control for dose reduction was used. FINDINGS: There is no evidence of acute intracranial hemorrhage, acute ischemic changes, mass, mass-effect, or extra-axial fluid collection. There is no effacement of cerebral sulci or basal subarachnoid cister ns. There is no hydrocephalus. There is no midline shift. Warren-white matter distinction is preserv ed. Orbits and globes appear intact. Leftward nasal septal deviation. Visualized paranasal sinuses mastoi d air cells are clear. IMPRESSION: Stable exam without acute intracranial abnormality seen.
== END | disposition home or self-care (01) ==
LOC: RADCTMAIN 10:51
PROVIDERS: ATTEND Nurse Practitioner Family
DX: H53.9 Unspecified visual disturbance (principal); R51 Headache; Z88.5 Allergy status to narcotic agent; Z88.2 Allergy status to sulfonamides; Z88.4 Allergy status to anesthetic agent
CPT/HCPCS: 70450

== ENCOUNTER 2018-09-18 12:46 | Inpatient (IN) | payer MEDICARE ==
[2018-09-18] MEDS ORDERED: SODIUM CHLORIDE 0.9% 1,000 ML IV STA (13:07)
[2018-09-18] MEDS ORDERED: DIPHENOX-ATROP STARTER PACK 8 TAB BTL PO STA (13:08)
[2018-09-18] MEDS ORDERED: ACETAMINOPHEN TAB 500 MG TAB PO STA (13:08)
[2018-09-18] MEDS ORDERED: ONDANSETRON 4 MG/2 ML VIAL IVP STA (13:08)
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
[2018-09-18 14:00] LABS: Appearance,Urine Clear (Clear); Bilirubin,Urine Negative (Negative); Blood,Urine Negative (Negative); Color,Urine Yellow; Glucose,Urine (UA) Negative (Negative); Ketones,Urine Negative (Negative); Leukocyte Esterase,Urine Negative (Negative); Nitrite,Urine Negative (Negative); Protein,Urine Trace (Negative); Urobilinogen,Urine <2.0 mg/dL (<2.0)
[2018-09-18 14:28] LABS: Basophils % (A) 0 %; Eosinophils # (A) 0.2 k/uL (0-0.7); Eosinophils % (A) 1 %; HCT 52.9 % (34.0-46.0); Lymphocytes # (A) 0.5 k/uL (1.0-4.8); Lymphocytes % (A) 2 %; MCH 28.4 pg (25.0-35.0); MCHC 32.1 g/dL (31.0-37.0); MCV 88.6 fL (80.0-100.0); Mean Platelet Volume 6.3; Monocytes # (A) 0.7 k/uL (0-1.0); Monocytes % (A) 3 %; Neutrophils # (A) 19.1 k/uL (1.3-7.7); Neutrophils % (A) 93 %; Platelet Count 457 k/uL (150-450); RBC 5.98 m/uL (3.80-5.40); RDW 13.6 % (11.5-15.5); WBC 20.6 k/uL (3.8-10.6)
[2018-09-18 14:38] LABS: ALT 32 U/L (9-52); AST 28 U/L (14-36); Albumin 4.9 g/dL (3.5-5.0); Alkaline Phosphatase 108 U/L (38-126); Amylase 49 U/L (30-110); Anion Gap 14 mmol/L; Blood Urea Nitrogen 24 mg/dL (7-17); Calcium 10.4 mg/dL (8.4-10.2); Carbon Dioxide 19 mmol/L (22-30); Chloride 110 mmol/L (98-107); Glucose 125 mg/dL (74-99); Lipase 70 U/L (23-300); Potassium 4.8 mmol/L (3.5-5.1); Sodium 143 mmol/L (137-145); Total Bilirubin 0.9 mg/dL (0.2-1.3); Total Protein 8.5 g/dL (6.3-8.2)
--- NOTE | 2018-09-18 15:21 | XR ---
EXAMINATION TYPE: XR chest 2V DATE OF EXAM: 09/18/2018 COMPARISON: 10/22/2017 HISTORY: 68-year-old female with abdominal pain TECHNIQUE: PA and lateral views FINDINGS: The cardiomediastinal silhouette, aorta, and pulmonary vasculature are within normal limits. Mild int erstitial prominence is a chronic appearance. Otherwise, lungs and pleural spaces are clear. IMPRESSION: No acute cardiopulmonary process.
[2018-09-18] MEDS ORDERED: SODIUM CHLORIDE 0.9% 1,000 ML IV ONE (15:58)
[2018-09-18] MEDS ORDERED: ONDANSETRON 4 MG/2 ML VIAL IVP PRN (15:59)
[2018-09-18] MEDS ORDERED: DIPHENOX-ATROP 2.5-0.025 MG 1 EACH TAB PO PRN (15:59)
[2018-09-18] MEDS ORDERED: METOCLOPRAMIDE 5 MG/ML 2 ML VIAL IVP STA (16:28)
[2018-09-18] MEDS ORDERED: SODIUM CHLORIDE 0.9% 500 ML 250 ML IV ONE (18:31)
[2018-09-18] MEDS: METOPROLOL TARTRATE 50 MG TAB PO SCH (18:56)
--- NOTE | 2018-09-18 19:38 | CT ---
EXAMINATION TYPE: CT abdomen wo con DATE OF EXAM: 09/18/2018 HISTORY: abdominal pain CT DLP: 332.9 mGycm. Automated Exposure Control for Dose Reduction was Utilized. TECHNIQUE: CT scan of the abdomen is performed without oral or IV contrast. COMPARISON: CT abdomen and pelvis October 25, 2017 FINDINGS: Within the limitations of a non-contrast study, the following observations are made. LUNG BASES: No significant abnormality is appreciated. LIVER/GB: No significant abnormality is appreciated. PANCREAS: No significant abnormality is seen. SPLEEN: Scattered small splenule left upper quadrant are redemonstrated. ADRENALS: Slightly thickened bilateral adrenal gland limb suggest benign hyperplasia unchanged from p rior. KIDNEYS: Calcifications throughout mid aspect left kidney may be dystrophic axial image 46 they are u nchanged in appearance from prior study versus renal calculi. Additional 2 mm calcification or calcul us lower pole left kidney axial image 55 is redemonstrated. There is interval improvement in calculus burden lower pole level from prior CT. No hydronephrosis or obstructing ureter calculi are clearly s een bilaterally. BOWEL: Stable small size hiatal hernia. Mild wall thickening left colon with diverticula is identifie d. Finding presumed product of poor distention, a mild colitis should be excluded clinically. No susp icious small or large bowel dilatation. LYMPH NODES: No greater than 1cm abdominal lymph nodes are appreciated. OSSEOUS STRUCTURES: Moderate disc space narrowing with vacuum disc phenomenon L5-S1 level is present. Facet arthropathy lower lumbar spine is seen. OTHER: No significant additional abnormality is seen. IMPRESSION: Interval improvement in renal calculi lower pole left kidney. Interval improvement in lef t-sided hydronephrosis. No new or acute finding is clearly seen to account for patient's symptoms of diffuse nonspecific abdominal pain.
[2018-09-18 20:02] LABS: Basophils % (A) 0 %; Eosinophils # (A) 0.1 k/uL (0-0.7); Eosinophils % (A) 1 %; HCT 45.1 % (34.0-46.0); HGB 14.6 gm/dL (11.4-16.0); Lymphocytes # (A) 0.8 k/uL (1.0-4.8); Lymphocytes % (A) 5 %; MCH 28.8 pg (25.0-35.0); MCHC 32.3 g/dL (31.0-37.0); Mean Platelet Volume 7.3; Monocytes # (A) 0.6 k/uL (0-1.0); Monocytes % (A) 4 %; Neutrophils # (A) 13.5 k/uL (1.3-7.7); Neutrophils % (A) 89 %; Platelet Count 449 k/uL (150-450); RBC 5.07 m/uL (3.80-5.40); RDW 14.1 % (11.5-15.5); WBC 15.3 k/uL (3.8-10.6)
[2018-09-19] MEDS: ACETAMINOPHEN TAB 325 MG TAB PO PRN ×2 (03:01→12:43)
[2018-09-19] MEDS: METOPROLOL TARTRATE 50 MG TAB PO SCH (10:03)
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
[2018-09-19] MEDS: PANTOPRAZOLE 40 MG/10 ML VIAL IVP SCH (17:19)
[2018-09-20] MEDS: METOPROLOL TARTRATE 50 MG TAB PO SCH (07:18)
[2018-09-20] MEDS: PANTOPRAZOLE 40 MG/10 ML VIAL IVP SCH (07:19)
[2018-09-20 08:53] VITALS: BP 130/77; PULSE 69; RESP 12; TEMP 98.6
[2018-09-20 09:53] LABS: HCT 44.8 % (34.0-46.0); HGB 14.4 gm/dL (11.4-16.0); MCH 28.5 pg (25.0-35.0); MCHC 32.2 g/dL (31.0-37.0); MCV 88.5 fL (80.0-100.0); Mean Platelet Volume 6.3; Platelet Count 477 k/uL (150-450); RBC 5.06 m/uL (3.80-5.40); RDW 13.8 % (11.5-15.5); WBC 7.4 k/uL (3.8-10.6)
[2018-09-20 10:05] LABS: Anion Gap 6 mmol/L; Blood Urea Nitrogen 10 mg/dL (7-17); Calcium 9.4 mg/dL (8.4-10.2); Carbon Dioxide 25 mmol/L (22-30); Chloride 111 mmol/L (98-107); Glucose 116 mg/dL (74-99); Sodium 142 mmol/L (137-145)
[2018-09-20 10:14] LABS: Potassium 4.3 mmol/L (3.5-5.1)
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
== END 2018-09-20 14:31 | disposition home or self-care (01) | DRG 392 ==
LOC: EC 12:46 → 1SOBS 15:58 → OBSVTOIN 09-19 07:55 → 4SSUR 09-19 10:23
PROVIDERS: ADMIT Family Medicine; ATTEND Family Medicine
DX: A08.4 Viral intestinal infection, unspecified (principal); E87.2 Acidosis; F40.240 Claustrophobia; I10 Essential (primary) hypertension; N20.0 Calculus of kidney; Z87.442 Personal history of urinary calculi; Z79.899 Other long term (current) drug therapy; Z82.49 Family history of ischemic heart disease and other diseases of the circulatory system; Z86.711 Personal history of pulmonary embolism; Z86.718 Personal history of other venous thrombosis and embolism; Z90.710 Acquired absence of both cervix and uterus; Z90.81 Acquired absence of spleen; Z87.820 Personal history of traumatic brain injury; G43.909 Migraine, unspecified, not intractable, without status migrainosus; Z88.8 Allergy status to other drugs, medicaments and biological substances
CPT/HCPCS: 36415; 71046; 74150; 80048; 80053; 81003; 82150; 83605; 83690; 85025; 85027; 87040; 87502; 96361; 96365; 96375; 99285

== ENCOUNTER 2018-09-30 13:53 | Emergency (ER) | payer MEDICARE ==
[2018-09-30 14:06] VITALS: RESP 18
[2018-09-30] MEDS ORDERED: KETOROLAC 60 MG/2 ML VIAL IM STA (14:22)
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
--- NOTE | 2018-09-30 14:56 | XR ---
EXAMINATION TYPE: XR Hip Complete LT DATE OF EXAM: 09/30/2018 COMPARISON: NONE HISTORY: Hip pain TECHNIQUE: 2 views FINDINGS: I see no fracture nor dislocation. Hip joint space is fairly normal. Sacroiliac joint appea rs normal. IMPRESSION: Normal left hip exam.
--- NOTE | 2018-09-30 14:57 | XR ---
EXAMINATION TYPE: XR lumbar spine 2 or 3V DATE OF EXAM: 09/30/2018 COMPARISON: NONE HISTORY: Hip pain TECHNIQUE: 3 views FINDINGS: Lumbar vertebra have normal alignment. There is narrowing at L5-S1 disc with vacuum disc. T here is no compression fracture. Posterior elements are intact. Sacroiliac joints appear normal. IMPRESSION: Mild spondylosis at L5-S1. No fracture.
--- NOTE | 2018-09-30 15:24 | US ---
EXAMINATION TYPE: US venous doppler duplex LE LT DATE OF EXAM: 09/30/2018 2:23 PM COMPARISON: CLINICAL HISTORY: Pain. left leg pain. No redness. No swelling. Not on blood thinners. Hx of DVT in right leg. SIDE PERFORMED: Left TECHNIQUE: The lower extremity deep venous system is examined utilizing real time linear array sonog zonia with graded compression, doppler sonography and color-flow sonography. VESSELS IMAGED: External Iliac Vein (EIV) Common Femoral Vein Deep Femoral Vein Greater Saphenous Vein * Femoral Vein Popliteal Vein Small Saphenous Vein * Proximal Calf Veins (* superficial vessels) Left Leg: Negative for DVT IMPRESSION: No evidence of deep venous thrombosis in the left leg.
[2018-09-30 16:29] VITALS: BP 150/89; PULSE 59; TEMP 98.6
== END 2018-09-30 16:27 | disposition home or self-care (01) ==
LOC: EC 13:53
DX: M54.16 Radiculopathy, lumbar region (principal); M47.817 Spondylosis without myelopathy or radiculopathy, lumbosacral region; I10 Essential (primary) hypertension; Z79.899 Other long term (current) drug therapy; Z88.1 Allergy status to other antibiotic agents; Z88.2 Allergy status to sulfonamides; Z88.5 Allergy status to narcotic agent; Z86.718 Personal history of other venous thrombosis and embolism; Z86.711 Personal history of pulmonary embolism
CPT/HCPCS: 72100; 73502; 93971; 99284; 96372; J1885

== ENCOUNTER 2019-02-02 10:38 | Emergency (ER) | payer MEDICARE ==
[2019-02-02 10:45] VITALS: RESP 18; TEMP 98
[2019-02-02] MEDS ORDERED: ASPIRIN 81 MG PO STA (11:10)
[2019-02-02] MEDS ORDERED: SODIUM CHLORIDE 0.9% 500 ML 500 ML IV STA (11:10)
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
[2019-02-02 11:44] LABS: Basophils # (A) 0.1 k/uL (0-0.2); Basophils % (A) 1 %; Eosinophils # (A) 0.2 k/uL (0-0.7); Eosinophils % (A) 2 %; HCT 47.3 % (34.0-46.0); HGB 15.7 gm/dL (11.4-16.0); Lymphocytes # (A) 3.4 k/uL (1.0-4.8); Lymphocytes % (A) 34 %; MCH 29.3 pg (25.0-35.0); MCHC 33.2 g/dL (31.0-37.0); Mean Platelet Volume 7.2; Monocytes # (A) 0.5 k/uL (0-1.0); Monocytes % (A) 5 %; Neutrophils # (A) 5.5 k/uL (1.3-7.7); Neutrophils % (A) 56 %; Platelet Count 546 k/uL (150-450); RBC 5.38 m/uL (3.80-5.40); RDW 14.1 % (11.5-15.5); WBC 9.9 k/uL (3.8-10.6)
[2019-02-02 11:53] LABS: ALT 23 U/L (9-52); AST 28 U/L (14-36); African American GFR (CKD) >90 (>60 ml/min/1.73 sqM); Albumin 4.3 g/dL (3.5-5.0); Alkaline Phosphatase 119 U/L (38-126); Amylase 57 U/L (30-110); Anion Gap 10 mmol/L; Blood Urea Nitrogen 17 mg/dL (7-17); Calcium 10.1 mg/dL (8.4-10.2); Carbon Dioxide 24 mmol/L (22-30); Chloride 109 mmol/L (98-107); Glucose 140 mg/dL (74-99); Magnesium 1.8 mg/dL (1.6-2.3); Potassium 4.2 mmol/L (3.5-5.1); Sodium 143 mmol/L (137-145); Total Bilirubin 0.4 mg/dL (0.2-1.3); Total Protein 7.6 g/dL (6.3-8.2)
[2019-02-02 12:24] LABS: D-Dimer 0.51 mg/L FEU (<0.60); INR 0.9 (<1.2); Prothrombin Time 9.7 sec (9.0-12.0)
[2019-02-02 12:29] LABS: Partial Thromboplastin Time 21.9 sec (22.0-30.0)
--- NOTE | 2019-02-02 12:42 | XR ---
EXAMINATION TYPE: XR chest 2V DATE OF EXAM: 02/02/2019 COMPARISON: 09/18/2018 HISTORY: 68 year-old female abdominal pain TECHNIQUE: PA and lateral views FINDINGS: Heart upper limits of normal in size. Mild elongation thoracic aorta. Mild diffuse interstitial promi nence as a chronic appearance. No consolidation or pleural effusion. IMPRESSION: Borderline heart size. Chronic appearing changes. No definite acute process.
[2019-02-02 15:58] VITALS: BP 117/79; PULSE 84
== END 2019-02-02 15:58 | disposition home or self-care (01) ==
LOC: EC 10:38
DX: R07.89 Other chest pain (principal); D47.3 Essential (hemorrhagic) thrombocythemia; I10 Essential (primary) hypertension; Z88.1 Allergy status to other antibiotic agents; Z88.2 Allergy status to sulfonamides; Z88.5 Allergy status to narcotic agent; Z79.899 Other long term (current) drug therapy; Z82.49 Family history of ischemic heart disease and other diseases of the circulatory system
CPT/HCPCS: 36415; 71046; 80053; 82150; 83690; 83735; 83880; 84484; 85025; 85379; 85610; 85730; 93005; 99285

== ENCOUNTER → 2019-03-21 | Outpatient (CLI) | payer MEDICARE ==
--- NOTE | 2019-03-21 10:20 | MM ---
Reason for exam: follow-up at short interval from prior study. Last mammogram was performed 9 months ago. History: Patient is postmenopausal. Ultrasound-guided core biopsy of the left breast, November 14, 2002. Benign cyst aspiration of the left breast. Took hormonal contraceptives for 2 years. Physical Findings: Nurse Summary: 1cm nodule in the right breast at 9 and 11 o'clock, a 1cm nodule in the left breast at 2 o'clock (nurse kp). MG 3D Diag Mammo W/Cad JACLYN Bilateral CC and MLO view(s) were taken. Prior study comparison: July 03, 2018, bilateral MG 3d screening mammo w/cad. June 03, 2017, bilateral MG screening mammo w CAD. The breast tissue is heterogeneously dense. This may lower the sensitivity of mammography. There is chronic nodularity in the left breast. There is a vague increased density with non-discrete boarders adjacent to right breast BB's. These results were verbally communicated with the patient and result sheet given to the patient on 03/21/19. ASSESSMENT: Incomplete: need additional imaging evaluation, BI-RAD 0 RECOMMENDATION: Ultrasound of both breasts.
--- NOTE | 2019-03-21 10:25 | USB ---
Reason for exam: additional evaluation requested from prior study. History: Patient is postmenopausal. Ultrasound-guided core biopsy of the left breast, November 14, 2002. Benign cyst aspiration of the left breast. Took hormonal contraceptives for 2 years. US Breast Limited BILAT Right limited breast ultrasound including focal area of concern, retroareolar and axilla demonstrates a 9 x 5 x 6mm oval lymph node at 9 o'clock BB, a 8 x 6 x 6mm oval lymph node at 10 o'clock, a 3 x 3 x 3mm irregular, hypoechoic lesion at 8 o'clock, possible shadowing, biopsy recommended and a 7mm oval lymph node at the axilla tail. Left limited breast ultrasound including focal area of concern, retroareolar and axilla demonstrates a 3 x 2 x 3mm oval, cystic lesion at 2 o'clock and a 8mm oval lymph node at the axilla tail. These results were verbally communicated with the patient and result sheet given to the patient on 03/21/19. ASSESSMENT: Suspicious, BI-RAD 4 RECOMMENDATION: Ultrasound core biopsy of the right breast. (8 o'clock) Called Dr. Ryan and Dr. Cardona's office with mammographic findings and has scheduled an appointment for the patient for 05/10/19 at 11:[address] Rae. Biopsy scheduled for 04/11/19 at 12:20. PRELIMINARY REPORT CALLED AND FAXED TO DR. RAE ON 03/21/19.
== END | disposition home or self-care (01) ==
LOC: RADMAMWWP 07:35
PROVIDERS: ATTEND Nurse Practitioner Women's Health
DX: N64.4 Mastodynia (principal); N63.10 Unspecified lump in the right breast, unspecified quadrant
CPT/HCPCS: 77066; 76642; G0279; 77062

== ENCOUNTER → 2019-04-11 | Day surgery (SDC) | payer MEDICARE ==
[2019-04-11 11:35] VITALS: RESP 12
[2019-04-11 12:31] VITALS: BP 125/81; PULSE 65; TEMP 98.6
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
== END ==
LOC: RADUSWWP 11:20
PROVIDERS: ATTEND Surgery
DX: D24.1 Benign neoplasm of right breast (principal); N60.11 Diffuse cystic mastopathy of right breast; R92.8 Other abnormal and inconclusive findings on diagnostic imaging of breast; Z88.1 Allergy status to other antibiotic agents; Z88.5 Allergy status to narcotic agent; Z88.2 Allergy status to sulfonamides
CPT/HCPCS: 88305; 77065; 19083; A4648; J2001

== ENCOUNTER → 2019-07-26 | Outpatient (CLI) | payer MEDICARE ==
--- NOTE | 2019-07-26 16:05 | XR ---
EXAMINATION TYPE: XR chest 2V DATE OF EXAM: 07/26/2019 COMPARISON: 02/02/2019 HISTORY: 69-year-old female cough and fever TECHNIQUE: Frontal and lateral views FINDINGS: Heart upper limits of normal in size. Aorta within normal limits. Mild diffuse interstitial prominenc e. No consolidation or pleural effusion. IMPRESSION: Interstitial prominence may reflect rhonchi or asthma. No focal infiltrate seen.
== END | disposition home or self-care (01) ==
LOC: RADXRMAIN 14:17
PROVIDERS: ATTEND Family Medicine
DX: R91.8 Other nonspecific abnormal finding of lung field (principal); R05 Cough; R50.9 Fever, unspecified
CPT/HCPCS: 71046; 87502

== ENCOUNTER → 2019-08-07 | Outpatient (CLI) | payer MEDICARE | END | disposition home or self-care (01) | LOC: CPPFTMAIN 10:45 | PROVIDERS: ATTEND Family Medicine | DX: J98.8 Other specified respiratory disorders (principal) | CPT/HCPCS: 94060; 94726; 94729 ==

== ENCOUNTER → 2020-05-23 | Outpatient (CLI) | payer MEDICARE ==
--- NOTE | 2020-05-23 15:40 | US ---
EXAMINATION TYPE: US thyroid st tissue head/neck DATE OF EXAM: 05/23/2020 COMPARISON: US CLINICAL HISTORY: E01.0. F/U GLAND SIZE: Right Lobe: 5.4 x 2.2 x 1.7 cm Overall Parenchyma: heterogenous Left Lobe: 6.7 x 2.2 x 2.8 cm Overall Parenchyma: heterogeneous Isthmus Thickness: 0.2 cm NODULES RIGHT: # of nodules measured on right: 2 1. 3.6 X 1.7 x 2.9 cm solid or almost completely solid, hypoechoic nodule, which is wider than tall , with smooth margins, without echogenic foci. Prior size: 3.0 x 1.6 x 2.1 cm 2. 0.7 X 0.4 x 0.6 cm mixed cystic and solid, hypoechoic nodule, which is wider than tall, with smo oth margins, without echogenic foci. Prior size: 0.5 x 0.3 x 0.5 cm LEFT: # of nodules measured on left: 2 1. 3.6 X 2.3 x 3.4 cm solid or almost completely solid, hypoechoic nodule, which is wider than tall , with smooth margins, without echogenic foci. Prior size: 3.5 x 2.4 x 2.0 cm 2. 1.7 X 1.2 x 1.5 cm mixed cystic and solid, hypoechoic nodule, which is wider than tall, with smo oth margins, without echogenic foci. Prior size: 1.3 x 0.9 x 1.4 cm Bilateral neck scanned, no evidence of lymphadenopathy. Bilateral nodules increased in size when comp ared to previous. IMPRESSION: 1. Enlarging left lobe thyroid nodule 2. Enlarging right lobe thyroid nodule 2017 ACR TI-RADS LEVEL: 2 *Highest TI-RADS level nodule reported
== END | disposition home or self-care (01) ==
LOC: RADUSWWP 13:29
PROVIDERS: ATTEND Family Medicine
DX: E04.2 Nontoxic multinodular goiter (principal); Z88.2 Allergy status to sulfonamides; Z88.6 Allergy status to analgesic agent; Z88.5 Allergy status to narcotic agent
CPT/HCPCS: 76536

== ENCOUNTER 2020-06-19 09:53 | Day surgery (SDC) | payer MEDICARE ==
[2020-06-19 10:21] VITALS: RESP 16; TEMP 98.2
[2020-06-19 11:52] VITALS: BP 155/76; PULSE 70
--- NOTE | 2020-06-19 11:52 | US ---
ULTRASOUND GUIDED FNA THYROID BIOPSY: CLINICAL HISTORY: Request for right and left thyroid nodule biopsy FINDINGS: The procedure was explained to the patient. The risks, complications, benefits and alternatives were discussed and any questions were answered. Informed consent was obtained. Patient was placed supin e on the ultrasound table and prepped and draped in the usual sterile fashion. Utilizing a 25 gauge needle, five passes were made into the requested right thyroid nodule and left thyroid nodule. Patient was stable throughout the procedure. Pathology is pending. All elements of maximal barrier technique were utilized. IMPRESSION: 1. Successful ultrasound guided FNA thyroid biopsy. Note is made that only a single nodule could be seen on the left side measuring approximately 5.3 cm. Prior report suggested there are 2 distinct nod ules which was not present on today's exam and appeared to represent one large nodule.
== END 2020-06-19 11:35 | disposition home or self-care (01) ==
LOC: RADPROMAIN 09:53
PROVIDERS: ATTEND Family Medicine
DX: E04.2 Nontoxic multinodular goiter (principal)
CPT/HCPCS: 10005; 10006; 88173; 88305

== ENCOUNTER → 2020-07-24 | Outpatient (CLI) | payer MEDICARE ==
--- NOTE | 2020-07-24 13:40 | MM ---
Reason for exam: additional evaluation requested from prior study. Last mammogram was performed 1 year and 3 months ago. History: Patient is postmenopausal. Benign US biopsy breast VAD RT of the right breast, April 11, 2019. Ultrasound-guided core biopsy of the left breast, November 14, 2002. Benign cyst aspiration of the left breast. Took hormonal contraceptives for 2 years. Physical Findings: Nurse did not find any significant physical abnormalities on exam. MG Diagnostic Mammo w CAD JACLYN Bilateral CC and MLO view(s) were taken. Prior study comparison: April 11, 2019, right breast MG diagnostic mammo RT wo CAD. March 21, 2019, bilateral MG 3d diag mammo w/cad JACLYN. The breast tissue is heterogeneously dense. This may lower the sensitivity of mammography. Previous mammotome biopsy in the right breast. There is chronic nodularity in the left breast. Stable axillary nodes bilaterally. No significant new findings when compared with previous films. These results were verbally communicated with the patient and result sheet given to the patient on 07/24/20. ASSESSMENT: Benign, BI-RAD 2 RECOMMENDATION: Routine screening mammogram of both breasts in 1 year.
== END | disposition home or self-care (01) ==
LOC: RADMAMWWP 10:40
PROVIDERS: ATTEND Family Medicine
DX: R92.8 Other abnormal and inconclusive findings on diagnostic imaging of breast (principal)
CPT/HCPCS: 77066

== ENCOUNTER → 2020-10-15 | Outpatient (CLI) | payer MEDICARE ==
[2020-10-15 10:51] VITALS: BP 154/77; PULSE 75; RESP 18; TEMP 98.1
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
== END ==
LOC: PNWHC3 10:38
PROVIDERS: ATTEND Hospitalist
DX: M47.26 Other spondylosis with radiculopathy, lumbar region (principal); M51.16 Intervertebral disc disorders with radiculopathy, lumbar region; E66.9 Obesity, unspecified; J44.9 Chronic obstructive pulmonary disease, unspecified; Z86.718 Personal history of other venous thrombosis and embolism; K21.9 Gastro-esophageal reflux disease without esophagitis; I10 Essential (primary) hypertension; M19.90 Unspecified osteoarthritis, unspecified site; Z79.899 Other long term (current) drug therapy; Z88.2 Allergy status to sulfonamides; Z88.5 Allergy status to narcotic agent; Z88.6 Allergy status to analgesic agent; Z88.8 Allergy status to other drugs, medicaments and biological substances; Z68.30 Body mass index [BMI] 30.0-30.9, adult
CPT/HCPCS: 99211

== ENCOUNTER 2021-04-04 16:07 | Emergency (ER) | payer MEDICARE ==
[2021-04-04 17:02] LABS: Appearance,Urine Clear (Clear); Bilirubin,Urine Negative (Negative); Blood,Urine Negative (Negative); Color,Urine Yellow; Glucose,Urine (UA) Negative (Negative); Ketones,Urine Negative (Negative); Leukocyte Esterase,Urine Negative (Negative); Nitrite,Urine Negative (Negative); PH, Urine 6.5 (5.0-8.0); Protein,Urine Negative (Negative); Specific Gravity,Urine 1.013 (1.001-1.035); Urobilinogen,Urine <2.0 mg/dL (<2.0)
[2021-04-04] MEDS ORDERED: SODIUM CHLORIDE 0.9% 500 ML 500 ML IV STA (18:45)
[2021-04-04] MEDS ORDERED: HYDROmorphone 0.5 MG/0.5 ML SYRINGE IVP STA (18:45)
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
[2021-04-04 19:28] LABS: Basophils # (A) 0.1 k/uL (0-0.2); Basophils % (A) 1 %; Eosinophils # (A) 0.3 k/uL (0-0.7); Eosinophils % (A) 2 %; HGB 15.9 gm/dL (11.4-16.0); Lymphocytes % (A) 29 %; MCHC 31.8 g/dL (31.0-37.0); MCV 91.2 fL (80.0-100.0); Mean Platelet Volume 7.1; Monocytes # (A) 0.9 k/uL (0-1.0); Monocytes % (A) 6 %; Neutrophils # (A) 8.1 k/uL (1.3-7.7); Neutrophils % (A) 59 %; Platelet Count 531 k/uL (150-450); RBC 5.48 m/uL (3.80-5.40); RDW 13.3 % (11.5-15.5); WBC 13.7 k/uL (3.8-10.6)
[2021-04-04 19:55] LABS: INR 0.9 (<1.2); Partial Thromboplastin Time 22.3 sec (22.0-30.0); Prothrombin Time 9.9 sec (9.0-12.0)
[2021-04-04 19:57] LABS: ALT 22 U/L (4-34); AST 34 U/L (14-36); African American GFR (CKD) >90 (>60 ml/min/1.73 sqM); Albumin 4.3 g/dL (3.5-5.0); Alkaline Phosphatase 108 U/L (38-126); Amylase 58 U/L (30-110); Anion Gap 10 mmol/L; Blood Urea Nitrogen 15 mg/dL (7-17); Calcium 9.5 mg/dL (8.4-10.2); Carbon Dioxide 20 mmol/L (22-30); Chloride 109 mmol/L (98-107); Glucose 101 mg/dL (74-99); Lipase 110 U/L (23-300); Non-African American GFR(CKD) >90 (>60 ml/min/1.73 sqM); Sodium 139 mmol/L (137-145); Total Bilirubin 0.7 mg/dL (0.2-1.3); Total Protein 7.9 g/dL (6.3-8.2)
[2021-04-04 20:00] LABS: Potassium 5.2 mmol/L (3.5-5.1)
--- NOTE | 2021-04-04 20:55 | CT ---
EXAMINATION TYPE: CT abdomen pelvis w con DATE OF EXAM: 04/04/2021 COMPARISON: 09/18/2018 HISTORY: Abdominal pain, hx diverticulits, kidney stones CT DLP: 1138.2 mGycm Automated exposure control for dose reduction was used. CONTRAST: Performed with IV Contrast, patient injected with 100 mL of Isovue 300. There is mild subsegmental atelectasis left lung base. There is no pleural effusion. Heart is borderl ine enlarged. There is no pericardial effusion. Liver spleen stomach pancreas appear intact. Bile ducts are not dilated. Gallbladder is intact. There is no adrenal mass. Kidneys show satisfactory contrast opacification. There is no hydronephrosi s. There are some left-sided renal cortical calcifications anteriorly and posteriorly. No suspicious renal mass. Ureters are not dilated. There is no retroperitoneal adenopathy. Bladder distends smoothl y. There is no inguinal hernia. There is no free fluid in the pelvis. There is no mesenteric edema. There is no ascites or free air. There is no bowel obstruction. Appendi x is not seen. There is no sign of thickened appendix. There are some sigmoid diverticula. There is no evidence of diverticulitis. The lumbar vertebra have normal alignment. There is narrowing at L5-S1 disc space with vacuum disc an d spurring. Bony pelvis is intact. The hip joints are intact. IMPRESSION: Minimal diverticulosis without diverticulitis. Left-sided renal parenchymal calcifications consistent with scarring and not significantly different than old exam.
[2021-04-04 21:22] VITALS: BP 151/83; PULSE 68; RESP 18; TEMP 98.1
== END 2021-04-04 21:22 | disposition home or self-care (01) ==
LOC: EC 16:07
DX: K57.30 Diverticulosis of large intestine without perforation or abscess without bleeding (principal); Z88.8 Allergy status to other drugs, medicaments and biological substances; Z88.3 Allergy status to other anti-infective agents; Z88.2 Allergy status to sulfonamides; Z88.5 Allergy status to narcotic agent
CPT/HCPCS: 36415; 93005; 80053; 82150; 83605; 83690; 84484; 85025; 85610; 85730; 81003; 74177; 99284; 96360; 96361; Q9967

== ENCOUNTER 2021-07-14 22:37 | Emergency (ER) | payer MEDICARE ==
[2021-07-14 22:44] VITALS: BP 148/80; PULSE 86; RESP 16; TEMP 97.3
[2021-07-14] MEDS ORDERED: FAMOTIDINE 20 MG TAB PO STA (23:26)
[2021-07-14] MEDS ORDERED: diphenhydrAMINE 50 MG/ML 1 ML VIAL IM STA (23:26)
[2021-07-14] MEDS ORDERED: predniSONE 20 MG TAB PO STA (23:27)
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
== END 2021-07-15 00:53 | disposition home or self-care (01) ==
LOC: EC 22:37
DX: L50.9 Urticaria, unspecified (principal); R21 Rash and other nonspecific skin eruption; I10 Essential (primary) hypertension; Z88.6 Allergy status to analgesic agent; Z88.1 Allergy status to other antibiotic agents; Z88.2 Allergy status to sulfonamides; Z88.5 Allergy status to narcotic agent
CPT/HCPCS: 99282; 96372; J1200; J7512

== ENCOUNTER → 2021-08-12 | Outpatient (CLI) | payer MEDICARE ==
--- NOTE | 2021-08-12 13:56 | MM ---
Reason for exam: screening (asymptomatic). Last mammogram was performed 1 year and 1 month ago. History: Patient is postmenopausal. Benign US biopsy breast VAD RT of the right breast, April 11, 2019. Ultrasound-guided core biopsy of the left breast, November 14, 2002. Benign cyst aspiration of the left breast. Took hormonal contraceptives for 2 years. Physical Findings: A clinical breast exam by your physician is recommended on an annual basis and results should be correlated with mammographic findings. MG 3D Screening Mammo W/Cad Bilateral CC and MLO view(s) were taken. Prior study comparison: July 24, 2020, bilateral MG diagnostic mammo w CAD JACLYN. April 11, 2019, right breast MG diagnostic mammo RT wo CAD. The breast tissue is heterogeneously dense. This may lower the sensitivity of mammography. There is chronic nodularity in the left breast. No significant changes when compared with prior studies. ASSESSMENT: Benign, BI-RAD 2 RECOMMENDATION: Routine screening mammogram of both breasts in 1 year.
== END | disposition home or self-care (01) ==
LOC: RADMAMWWP 09:12
PROVIDERS: ATTEND Family Medicine
DX: Z12.31 Encounter for screening mammogram for malignant neoplasm of breast (principal)
CPT/HCPCS: 77063; 77067

== ENCOUNTER → 2021-11-06 | Outpatient (CLI) | payer MEDICARE ==
--- NOTE | 2021-11-06 14:14 | US ---
EXAMINATION TYPE: US venous doppler duplex LE DATE OF EXAM: 11/06/2021 1:58 PM COMPARISON: NONE CLINICAL HISTORY: M79.604,M79.605 PAIN IN JACLYN LEG, Z86.718 HX DVT. bilat leg pain, h/o dvt in left le g years ago SIDE PERFORMED: Bilateral TECHNIQUE: The lower extremity deep venous system is examined utilizing real time linear array sonog zonia with graded compression, doppler sonography and color-flow sonography. VESSELS IMAGED: Common Femoral Vein Deep Femoral Vein Greater Saphenous Vein * Femoral Vein Popliteal Vein Small Saphenous Vein * Proximal Calf Veins (* superficial vessels) Right Leg: Negative for DVT Left Leg: Negative for DVT- medial fluid collection in popiteal space = 6.1cm IMPRESSION: 1. Bilateral lower extremity ultrasound negative for deep venous thrombosis. 2. Left popliteal cyst.
== END | disposition home or self-care (01) ==
LOC: RADUSWWP 13:19
PROVIDERS: ATTEND Family Medicine
DX: M79.604 Pain in right leg (principal); M79.605 Pain in left leg; M62.89 Other specified disorders of muscle; M71.22 Synovial cyst of popliteal space [Baker], left knee; M71.21 Synovial cyst of popliteal space [Baker], right knee; Z86.718 Personal history of other venous thrombosis and embolism
CPT/HCPCS: 93970

== ENCOUNTER → 2022-02-26 | Outpatient (CLI) | payer MEDICARE ==
--- NOTE | 2022-02-26 15:19 | US ---
EXAMINATION TYPE: US thyroid st tissue head/neck DATE OF EXAM: 02/26/2022 COMPARISON: US 05/23/2020, FNA 06/19/2020. CLINICAL HISTORY: E01.0 THYROMEGALY. F/U GLAND SIZE: Right Lobe: 6.7 x 2.5 x 2.4 cm Overall Parenchyma: heterogenous Left Lobe: 6.3 x 2.8 x 2.9 cm Overall Parenchyma: heterogeneous Isthmus Thickness: 0.6 cm NODULES RIGHT: # of nodules measured on right: 2 1. 3.6 X 1.8 x 2.8 cm, lower , solid or almost completely solid, hypoechoic nodule, which is wider than tall, with smooth margins, without echogenic foci. Previously biopsied. Prior size: 3.6 x 1.7 x 2.9 cm 2. 0.8 X 0.5 x 0.8 cm, upper, mixed cystic and solid, hypoechoic nodule, which is wider than tall, with smooth margins, without echogenic foci. Prior size: 0.7 x 0.4 x 0.6 cm LEFT: # of nodules measured on left: 2 1. 3.5 X 2.6 x 3.0 cm, lower, solid or almost completely solid, hypoechoic nodule, which is wider t estrella tall, with smooth margins, without echogenic foci. Previously biopsied. Prior size: 3.6 x 2.3 x 3.4 cm 2. 1.8 X 1.4 x 1.9 cm, upper, mixed cystic and solid, hypoechoic nodule, which is wider than tall, with smooth margins, without echogenic foci. Prior size: 1.7 x 1.2 x 1.5 cm ISTHMUS: # of nodules measured in the isthmus: 0 Bilateral neck scanned, no evidence of lymphadenopathy. Enlarged thyroid bilaterally/ Stable nodules IMPRESSION: Stable enlarged heterogenous thyroid gland with stable bilateral nodules.
== END | disposition home or self-care (01) ==
LOC: RADUSWWP 14:34
PROVIDERS: ATTEND Family Medicine
DX: E04.2 Nontoxic multinodular goiter (principal)
CPT/HCPCS: 76536

== ENCOUNTER 2022-03-02 15:29 | Emergency (ER) | payer MEDICARE ==
[2022-03-02 15:47] VITALS: TEMP 98.5
[2022-03-02] MEDS ORDERED: NITROGLYCERIN SL TABS 0.4 MG TAB SUBLINGUAL STA (15:56)
[2022-03-02 16:14] VITALS: RESP 16
[2022-03-02] MEDS ORDERED: ACETAMINOPHEN TAB 500 MG TAB PO STA (16:22)
[2022-03-02 16:28] LABS: Basophils # (A) 0.1 k/uL (0-0.2); Basophils % (A) 1 %; Eosinophils # (A) 0.3 k/uL (0-0.7); Eosinophils % (A) 2 %; HGB 15.8 gm/dL (11.4-16.0); Lymphocytes # (A) 3.7 k/uL (1.0-4.8); Lymphocytes % (A) 30 %; MCH 28.9 pg (25.0-35.0); MCHC 32.9 g/dL (31.0-37.0); MCV 87.9 fL (80.0-100.0); Mean Platelet Volume 7.8; Monocytes # (A) 0.9 k/uL (0-1.0); Monocytes % (A) 8 %; Neutrophils # (A) 6.8 k/uL (1.3-7.7); Neutrophils % (A) 55 %; Platelet Count 450 k/uL (150-450); RBC 5.46 m/uL (3.80-5.40); RDW 13.6 % (11.5-15.5); WBC 12.3 k/uL (3.8-10.6)
[2022-03-02 16:30] LABS: ALT 17 U/L (4-34); AST 23 U/L (14-36); African American GFR (CKD) >90 (>60 ml/min/1.73 sqM); Albumin 4.1 g/dL (3.5-5.0); Alkaline Phosphatase 137 U/L (38-126); Amylase 52 U/L (30-110); Anion Gap 11 mmol/L; Blood Urea Nitrogen 14 mg/dL (7-17); Calcium 9.3 mg/dL (8.4-10.2); Carbon Dioxide 24 mmol/L (22-30); Chloride 107 mmol/L (98-107); Glucose 100 mg/dL (74-99); Lipase 120 U/L (23-300); Magnesium 1.9 mg/dL (1.6-2.3); Non-African American GFR(CKD) >90 (>60 ml/min/1.73 sqM); Potassium 4.1 mmol/L (3.5-5.1); Sodium 142 mmol/L (137-145); Total Bilirubin 0.5 mg/dL (0.2-1.3)
--- NOTE | 2022-03-02 16:48 | XR ---
EXAMINATION TYPE: XR chest 2V DATE OF EXAM: 03/02/2022 COMPARISON: 07/26/2019 HISTORY: Chest pain TECHNIQUE: 2 view FINDINGS: There is no heart failure nor confluent pneumonic infiltrate. Costophrenic angles are clear there are chest leads. Bony thorax is intact. IMPRESSION: No active cardiopulmonary disease. Normal heart. No change.
[2022-03-02 16:51] LABS: INR 0.9 (<1.2); Prothrombin Time 10.1 sec (9.0-12.0)
[2022-03-02 16:55] LABS: Partial Thromboplastin Time 20.5 sec (22.0-30.0)
[2022-03-02 17:25] VITALS: PULSE 63
[2022-03-02 18:33] VITALS: BP 138/63
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
--- NOTE | 2022-03-02 18:54 | CT ---
EXAMINATION TYPE: CT chest angio for PE DATE OF EXAM: 03/02/2022 COMPARISON: None HISTORY: SOB and elevated D-dimer CT DLP: 354.1 mGycm Automated exposure control for dose reduction was used. CONTRAST: Performed with IV Contrast, patient injected with 70 mL of Isovue 370. Images obtained from the thoracic inlet through the diaphragm with the IV contrast. There are Three-D postprocessed images. There is some coarsening of interstitial markings in both lung leblanc. No pulmonary consolidation. He art is enlarged. No pericardial effusion. No pleural effusion. There is normal contrast opacification of the pulmonary arteries. No filling defect. There are no hilar masses. There is no mediastinal tabatha nopathy. There is enlarged thyroid gland consistent with multinodular goiter. Thyroid gland extends i nferiorly. 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 Thoracic aorta is intact. No aneurysm or dissection. The thoracic spine is intact. No compression fracture. Sternum is intact. There is some amorphous esthela cification in the anterior and posterior left kidney that could be calcifying atypical cysts. These a ppear unchanged compared to old abdomen CT scan of 04/04/2021. IMPRESSION: No evidence of pulmonary embolism. There is cardiomegaly which appears slightly increased compared to old exam. Mild pulmonary interstitial infiltrates could be some pulmonary fibrosis or interstitial p neumonia. No suspicious pulmonary mass. Retrosternal goiter. Interstitial pulmonary density increased compared to old exam.
== END 2022-03-02 19:59 | disposition home or self-care (01) ==
LOC: EC 15:29
DX: R07.89 Other chest pain (principal); I10 Essential (primary) hypertension; Z79.899 Other long term (current) drug therapy; E07.9 Disorder of thyroid, unspecified; Z20.822 Contact with and (suspected) exposure to COVID-19; Z88.3 Allergy status to other anti-infective agents; Z88.8 Allergy status to other drugs, medicaments and biological substances; Z88.2 Allergy status to sulfonamides
CPT/HCPCS: 36415; 71046; 71275; 80053; 82150; 83690; 83735; 84484; 85025; 85379; 85610; 85730; 87635; 93005; 99285

== ENCOUNTER 2022-04-02 09:25 | Day surgery (SDC) | payer MEDICARE ==
[2022-04-02 09:50] VITALS: TEMP 98
[2022-04-02 11:14] VITALS: BP 137/61; PULSE 66; RESP 14
--- NOTE | 2022-04-02 11:27 | US ---
EXAMINATION TYPE: US FNA thyroid first lesion, US FNA thyroid each add lesion, US FNA thyroid each ad d lesion DATE OF EXAM: 04/02/2022 COMPARISON: Thyroid ultrasound 02/26/2022 HISTORY: Thyroid nodules. Maximal barrier technique was utilized. After informed consent, skin overlying the right lobe thyroi d nodule was localized with ultrasound and the overlying skin prepped and draped. Ultrasound was util ized using sterile technique. Lidocaine was used for local anesthesia. Four passes with a 25-gauge n eedle were made into the nodule and aspirated specimen was submitted to cytology. Using similar techn ique, the lower pole nodule in the left lobe of the thyroid was sampled, 4 passes with 25-gauge needl e and subsequently the upper pole nodule was sampled using similar technique, 4 passes with a 25-gaug e needle under ultrasound guidance. Specimens submitted to cytology. Following the procedure hemostas is achieved. No immediate complication. The patient discharged in stable condition. IMPRESSION: STATUS POST ULTRASOUND GUIDED FINE NEEDLE ASPIRATION OF A DISCRETE THYROID NODULES, PATHO LOGY IS PENDING. THIS PROCEDURE WAS PERFORMED BY THE UNDERSIGNED.
== END 2022-04-02 11:10 | disposition home or self-care (01) ==
LOC: RADPROMAIN 09:25
PROVIDERS: ATTEND Family Medicine
DX: E04.1 Nontoxic single thyroid nodule (principal)
CPT/HCPCS: 10005; 10006; 88173; 88305

== ENCOUNTER 2022-08-22 20:45 | Emergency (ER) | payer MEDICARE ==
[2022-08-22 21:06] VITALS: RESP 16
[2022-08-22] MEDS ORDERED: diphenhydrAMINE 50 MG/ML 1 ML VIAL IVP STA (21:35)
[2022-08-22] MEDS ORDERED: METOCLOPRAMIDE 5 MG/ML 2 ML VIAL IVP STA (21:35)
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
[2022-08-22] MEDS ORDERED: KETOROLAC 15 MG/ML 1 ML VIAL IVP STA (21:36)
[2022-08-22 22:24] LABS: Basophils # (A) 0.1 k/uL (0-0.2); Basophils % (A) 1 %; Eosinophils # (A) 0.2 k/uL (0-0.7); Eosinophils % (A) 2 %; HCT 50.3 % (34.0-46.0); HGB 17.1 gm/dL (11.4-16.0); Lymphocytes # (A) 3.5 k/uL (1.0-4.8); Lymphocytes % (A) 30 %; MCH 29.9 pg (25.0-35.0); MCV 87.8 fL (80.0-100.0); Monocytes % (A) 8 %; Neutrophils # (A) 6.6 k/uL (1.3-7.7); Neutrophils % (A) 56 %; Platelet Count 433 k/uL (150-450); RBC 5.73 m/uL (3.80-5.40); RDW 13.5 % (11.5-15.5); WBC 11.7 k/uL (3.8-10.6)
[2022-08-22 22:30] LABS: ALT 24 U/L (4-34); African American GFR (CKD) >90 (>60 ml/min/1.73 sqM); Albumin 4.2 g/dL (3.5-5.0); Anion Gap 8 mmol/L; Blood Urea Nitrogen 18 mg/dL (7-17); Calcium 9.2 mg/dL (8.4-10.2); Carbon Dioxide 23 mmol/L (22-30); Chloride 110 mmol/L (98-107); Glucose 119 mg/dL (74-99); Non-African American GFR(CKD) >90 (>60 ml/min/1.73 sqM); Sodium 141 mmol/L (137-145); Total Bilirubin 0.5 mg/dL (0.2-1.3); Total Protein 7.3 g/dL (6.3-8.2)
[2022-08-22 23:16] LABS: AST 28 U/L (14-36); Alkaline Phosphatase 132 U/L (38-126); C Reactive Protein <0.5 mg/dL (<1.0); Potassium 4.8 mmol/L (3.5-5.1)
[2022-08-22 23:36] LABS: Erythrocyte Sedimentation Rate 8 mm/hr (0-20)
[2022-08-22] MEDS ORDERED: traMADol 50 MG STARTER PACK 3 TAB BTL PO STA (23:47)
[2022-08-22 23:55] VITALS: BP 118/70; PULSE 86; TEMP 97.8
== END 2022-08-22 23:58 | disposition home or self-care (01) ==
LOC: EC 20:45
DX: R51.9 Headache, unspecified (principal); I10 Essential (primary) hypertension; M19.90 Unspecified osteoarthritis, unspecified site; E07.9 Disorder of thyroid, unspecified; Z79.890 Hormone replacement therapy; Z79.899 Other long term (current) drug therapy; Z88.1 Allergy status to other antibiotic agents; Z88.2 Allergy status to sulfonamides; Z88.5 Allergy status to narcotic agent; Z88.8 Allergy status to other drugs, medicaments and biological substances
CPT/HCPCS: 36415; 80053; 85652; 85025; 86140; 99284; 96374; 96375 ×2; J1200; J2765; J1885

== ENCOUNTER → 2022-08-31 | Outpatient (CLI) | payer MEDICARE ==
--- NOTE | 2022-08-31 14:54 | CT ---
EXAMINATION TYPE: CT brain wo con DATE OF EXAM: 08/31/2022 COMPARISON: 08/22/2018 HISTORY: headache CT DLP: 1017.[address] of the brain was performed. The ventricles, basal cisterns and sulci overlying the cerebral convexities demonstrate mild enlargem ent. There is no evidence for intracranial hemorrhage or sulcal effacement. There is decreased attenuation about the periventricular white matter and deep white matter of both c erebral hemispheres, compatible with chronic small vessel ischemia. Differential diagnosis does inclu de demyelination. No mass effects are seen.No midline shift. Osseous calvarium is intact. If symptoms persist consider MRI. IMPRESSION: 1. Age related atrophic and chronic small vessel ischemic change without acute intracranial process s een at this time.
== END | disposition home or self-care (01) ==
LOC: RADCTMAIN 13:46
PROVIDERS: ATTEND Family Medicine
DX: I67.82 Cerebral ischemia (principal); G31.1 Senile degeneration of brain, not elsewhere classified; G44.229 Chronic tension-type headache, not intractable
CPT/HCPCS: 70450

== ENCOUNTER 2023-02-17 18:17 | Emergency (ER) | payer MEDICARE ==
[2023-02-17] MEDS ORDERED: SODIUM CHLORIDE 0.9% 1,000 ML IV STA (19:56)
[2023-02-17] MEDS ORDERED: ONDANSETRON 4 MG/2 ML VIAL IVP STA (19:56)
[2023-02-17] MEDS ORDERED: HYDROmorphone 1 MG/ML 1 ML SYRINGE IVP STA (19:57)
[2023-02-17] MEDS ORDERED: KETOROLAC 15 MG/ML 1 ML VIAL IVP STA (20:14)
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
[2023-02-17 20:56] LABS: Basophils # (A) 0.1 k/uL (0-0.2); Basophils % (A) 0 %; Eosinophils # (A) 0.1 k/uL (0-0.7); Eosinophils % (A) 1 %; HCT 48.4 % (34.0-46.0); HGB 15.8 gm/dL (11.4-16.0); Lymphocytes # (A) 2.2 k/uL (1.0-4.8); Lymphocytes % (A) 15 %; MCH 29.3 pg (25.0-35.0); MCHC 32.6 g/dL (31.0-37.0); MCV 89.9 fL (80.0-100.0); Mean Platelet Volume 7.6; Monocytes # (A) 0.7 k/uL (0-1.0); Monocytes % (A) 5 %; Neutrophils # (A) 11.9 k/uL (1.3-7.7); Neutrophils % (A) 78 %; Platelet Count 532 k/uL (150-450); RBC 5.38 m/uL (3.80-5.40); WBC 15.2 k/uL (3.8-10.6)
[2023-02-17 21:02] LABS: Appearance,Urine Clear (Clear); Bilirubin,Urine Negative (Negative); Blood,Urine Large (Negative); Color,Urine Light Red; Glucose,Urine (UA) Trace (Negative); Ketones,Urine Trace (Negative); Leukocyte Esterase,Urine Negative (Negative); Mucus,Urine Moderate /hpf; Nitrite,Urine Negative (Negative); PH, Urine 6.5 (5.0-8.0); Protein,Urine 1+ (Negative); RBC,Urine >182 /hpf (0-5); Specific Gravity,Urine 1.018 (1.001-1.035); Squamous Epithelial Cell,Urine 3 /hpf (0-4); WBC,Urine 2 /hpf (0-5)
[2023-02-17 21:03] LABS: ALT 25 U/L (4-34); AST 28 U/L (14-36); African American GFR (CKD) >90 (>60 ml/min/1.73 sqM); Albumin 4.3 g/dL (3.5-5.0); Alkaline Phosphatase 136 U/L (38-126); Amylase 60 U/L (30-110); Anion Gap 12 mmol/L; Blood Urea Nitrogen 17 mg/dL (7-17); Calcium 9.8 mg/dL (8.4-10.2); Carbon Dioxide 22 mmol/L (22-30); Chloride 108 mmol/L (98-107); Glucose 175 mg/dL (74-99); Lipase 94 U/L (23-300); Non-African American GFR(CKD) >90 (>60 ml/min/1.73 sqM); Potassium 4.5 mmol/L (3.5-5.1); Sodium 142 mmol/L (137-145); Total Bilirubin 0.5 mg/dL (0.2-1.3); Total Protein 7.7 g/dL (6.3-8.2)
--- NOTE | 2023-02-17 21:19 | US ---
EXAMINATION TYPE: US abdomen limited DATE OF EXAM: 02/17/2023 COMPARISON: NONE CLINICAL INDICATION: Female, 72 years old with history of RUQ pain; RUQ pain TECHNIQUE: Multiple sonographic images of the right upper quadrant are obtained. 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 Tail obscured Liver: Appears heterogeneous , no discrete mass or ductal dilation or cystic lesion. Gallbladder: wnl Evidence for sonographic Edge's sign: No CBD: wnl Right Kidney: wnl IMPRESSION: No evidence for acute process.
--- NOTE | 2023-02-17 22:24 | CT ---
EXAM: CT Abdomen and Pelvis Without Intravenous Contrast CLINICAL HISTORY: ITS.REASON CT Reason: R sided abd and flank pain TECHNIQUE: Axial computed tomography images of the abdomen and pelvis without intravenous contrast. CTDI is 13.8 mGy and DLP is 682.9 mGy-cm. This CT exam was performed using one or more of the following dose reduction techniques: automated exposure control, adjustment of the mA and/or kV according to patient size, and/or use of iterative reconstruction technique. COMPARISON: CT abdomen/pelvis on 04/04/2021 FINDINGS: Lung bases: Lower lung atelectasis. Heart: Mild cardiomegaly. Mediastinum: Small hiatal hernia. ABDOMEN: Liver: Unremarkable. Gallbladder and bile ducts: Unremarkable. No calcified stones. No ductal dilation. Pancreas: Unremarkable. No ductal dilation. Spleen: Unremarkable. No splenomegaly. Adrenals: Unremarkable. No mass. Kidneys and ureters: 3 mm stone in the distal right ureter near the right UVJ. Mild right hydroureteronephrosis. Right perinephric fat stranding. Probable punctate right renal stone. Probable nonobstructing left renal stones. No hydronephrosis or ureteral stone on the left. Nonspecific calcified left renal lesions. Stomach and bowel: Evaluation of the stomach is limited by underdistention. Diverticulosis without evidence of diverticulitis pattern. No small bowel obstruction. PELVIS: Appendix: Appendix is not visualized on this exam. Bladder: Unremarkable. No stones. Reproductive: Prior hysterectomy. ABDOMEN and PELVIS: Intraperitoneal space: Unremarkable. No free air. No significant fluid collection. Bones/joints: Degenerative changes of the spine. No acute fracture. No dislocation. Soft tissues: Small fat-containing ventral hernias. Vasculature: Phleboliths in the pelvis. Mild atherosclerotic changes of the vasculature. No abdominal aortic aneurysm. Lymph nodes: Unremarkable. No enlarged lymph nodes. IMPRESSION: 1. 3 mm stone in the distal right ureter near the right UVJ. Mild right hydroureteronephrosis. Right perinephric fat stranding. Probable punctate right renal stone. 2. Probable nonobstructing left renal stones. No hydronephrosis or ureteral stone on the left. Nonspecific calcified left renal lesions.
[2023-02-17 23:08] VITALS: BP 122/65; PULSE 66; RESP 17; TEMP 98.1
== END 2023-02-17 23:09 | disposition home or self-care (01) ==
LOC: EC 18:17
DX: N13.2 Hydronephrosis with renal and ureteral calculous obstruction (principal); I10 Essential (primary) hypertension; M19.90 Unspecified osteoarthritis, unspecified site; Z88.5 Allergy status to narcotic agent; Z88.2 Allergy status to sulfonamides; Z88.8 Allergy status to other drugs, medicaments and biological substances; Z79.899 Other long term (current) drug therapy
CPT/HCPCS: 36415; 80053; 82150; 83605; 83690; 85025; 81001; 76705; 74176; 99284; 96374; 96375; 96361 ×2; J2405; J1885

== ENCOUNTER → 2023-02-24 | Outpatient (CLI) | payer MEDICARE ==
--- NOTE | 2023-02-24 11:25 | XR ---
EXAMINATION TYPE: XR KUB DATE OF EXAM: 02/24/2023 HISTORY: Pain Comparison: 02/01/2018 Single KUB is submitted for interpretation. Findings: Right renal calculi: None Visualized. Right ureteral calculi: None Visualized. Left renal calculi: Calculi are again noted within the upper pole of the left kidney measuring 1.0 c m and 0.8 cm respectively. Additional calculi seen previously at the mid to lower pole of the left ki dney are no longer visualized. Left ureteral calculi: None Visualized. Pelvic calcifications: Pelvic phleboliths noted. Bowel gas pattern is unremarkable. No free air. No mass effects. IMPRESSION: 1. As above
== END | disposition home or self-care (01) ==
LOC: RADXRMAIN 10:41
PROVIDERS: ATTEND Urology
DX: I87.8 Other specified disorders of veins (principal); N20.2 Calculus of kidney with calculus of ureter
CPT/HCPCS: 74018

== ENCOUNTER 2023-04-21 18:26 | Emergency (ER) | payer MEDICARE ==
[2023-04-21] MEDS ORDERED: IPRATROPIUM-ALBUTEROL 3 ML NEB INHALATION STA (18:39)
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
[2023-04-21 18:49] VITALS: TEMP 97.8
[2023-04-21 19:27] LABS: Basophils # (A) 0.1 k/uL (0-0.2); Basophils % (A) 0 %; Eosinophils # (A) 0.1 k/uL (0-0.7); Eosinophils % (A) 1 %; HCT 48.1 % (34.0-46.0); HGB 15.8 gm/dL (11.4-16.0); Lymphocytes # (A) 3.3 k/uL (1.0-4.8); Lymphocytes % (A) 21 %; MCH 28.7 pg (25.0-35.0); MCHC 32.8 g/dL (31.0-37.0); MCV 87.7 fL (80.0-100.0); Mean Platelet Volume 7.7; Monocytes # (A) 1.4 k/uL (0-1.0); Monocytes % (A) 9 %; Neutrophils # (A) 10.8 k/uL (1.3-7.7); Neutrophils % (A) 67 %; Platelet Count 497 k/uL (150-450); RBC 5.49 m/uL (3.80-5.40); RDW 13.7 % (11.5-15.5); WBC 16.1 k/uL (3.8-10.6)
[2023-04-21 19:34] LABS: INR 0.9 (<1.2); Partial Thromboplastin Time 22.1 sec (22.0-30.0); Prothrombin Time 10.3 sec (10.0-12.5)
--- NOTE | 2023-04-21 19:54 | XR ---
EXAMINATION: XR chest 2V: 04/21/2023 7:16 PM CLINICAL INDICATION: difficulty breathing TECHNIQUE: Departmental protocol COMPARISON: 03/02/2022 FINDINGS: The overlying soft tissues are prominent. There appears to be mild silhouetting of the pulmonary vasc ulature bilaterally by a fine reticular pattern of increased density. This subtle finding can correla te with a clinical diagnosis of mild interstitial phase pulmonary edema. It is a subtle finding. Othe rwise, the lungs are clear and well expanded. The pleural spaces are negative. EKG leads. The cardiac silhouette is not enlarged. The remainder of the mediastinal silhouette is unr emarkable. The skeletal structures and soft tissues are negative for acute findings. IMPRESSION: Suspect mild interstitial phase pulmonary edema.
[2023-04-21 19:56] LABS: ALT 22 U/L (4-34); AST 25 U/L (14-36); African American GFR (CKD) >90 (>60 ml/min/1.73 sqM); Albumin 4.3 g/dL (3.5-5.0); Alkaline Phosphatase 119 U/L (38-126); Anion Gap 10 mmol/L; Blood Urea Nitrogen 19 mg/dL (7-17); Calcium 10.1 mg/dL (8.4-10.2); Carbon Dioxide 22 mmol/L (22-30); Chloride 108 mmol/L (98-107); Glucose 112 mg/dL (74-99); Non-African American GFR(CKD) >90 (>60 ml/min/1.73 sqM); Potassium 4.5 mmol/L (3.5-5.1); Sodium 140 mmol/L (137-145); Total Bilirubin 0.6 mg/dL (0.2-1.3); Total Protein 7.7 g/dL (6.3-8.2)
[2023-04-21 20:41] VITALS: RESP 20
--- NOTE | 2023-04-21 20:53 | CT ---
EXAMINATION TYPE: CT angio chest DATE OF EXAM: 04/21/2023 COMPARISON: NONE HISTORY: Dyspnea, elevated D-dimer, r/o pe. CT DLP: 284.2 mGycm. Automated Exposure Control for Dose Reduction was Utilized. CONTRAST: CTA scan of the thorax is performed with IV Contrast, patient injected with 100 ml mL of Is ovue 370. MIP Images are created on CT scanner and reviewed. 3D reconstructed images are created on an independent workstation and reviewed. FINDINGS: LOWER NECK: There is a left-sided goiter which extends caudally to substernal position; nonurgent Ult rasound can fully characterize. LUNGS: There is no major atelectasis or helena ulnar consolidation. There is a bibasilar fine reticula r pattern consistent with a clinical diagnosis of mild interstitial phase pulmonary edema. There is n o pleural effusion or pneumothorax seen. The tracheobronchial tree is patent. MEDIASTINUM: There is satisfactory enhancement of the pulmonary artery and its branches, with no CT e vidence for pulmonary embolism. There is no acute aortic process. Mild cardiomegaly noted. No pericar dial effusion. There are no greater than 1 cm hilar or mediastinal lymph nodes. OTHER: No additional significant abnormality is seen. IMPRESSION: Negative for pulmonary embolism. Suspect interstitial phase pulmonary edema.
[2023-04-21] MEDS ORDERED: FUROSEMIDE 10 MG/ML 4 ML VIAL IV STA (21:00)
[2023-04-21 21:50] VITALS: BP 136/68; PULSE 81
== END 2023-04-21 21:55 | disposition home or self-care (01) ==
LOC: EC 18:26
DX: I11.0 Hypertensive heart disease with heart failure (principal); I50.9 Heart failure, unspecified; Z20.822 Contact with and (suspected) exposure to COVID-19; Z79.899 Other long term (current) drug therapy; Z88.1 Allergy status to other antibiotic agents; Z88.2 Allergy status to sulfonamides; Z88.5 Allergy status to narcotic agent; Z88.8 Allergy status to other drugs, medicaments and biological substances
CPT/HCPCS: 36415; 94640; 93005; 85379; 83880; 80053; 83605; 85025; 85610; 85730; 87636; 71046; 71275; 99285; 96374; J1940; Q9967

== ENCOUNTER → 2023-07-26 | Outpatient (CLI) | payer MEDICARE ==
--- NOTE | 2023-07-26 17:50 | CA ---
Transthoracic Echo Report Name: Danielle Mcwilliams Age: 73 Gender: F : 1950 Exam Date: 07/26/2023 14:27 Exam Location: [place] [facility] Ht (in): 60 Wt (lb): 160 Ordering Physician: Luis Ryan MD Attending/Referring Phys: Registry Rn Yordan Bazzi RDCS Procedure CPT: Indications: I50.9 heart failure Cardiac Hx: Technical Quality: Fair Contrast 1: Total Dose (mL): Contrast 2: Total Dose (mL): MEASUREMENTS (Male / Female) Normal Values 2D ECHO LV Diastolic Diameter PLAX 4.9 cm 4.2 - 5.9 / 3.9 - 5.3 cm LV Systolic Diameter PLAX 1.6 cm IVS Diastolic Thickness 1.2 cm 0.6 - 1.0 / 0.6 - 0.9 cm LVPW Diastolic Thickness 0.6 cm 0.6 - 1.0 / 0.6 - 0.9 cm LV Relative Wall Thickness 0.4 RV Internal Dim ED PLAX 3.5 cm Aortic Root Diameter 3.5 cm LA Systolic Diameter LX 3.6 cm 3.0 - 4.0 / 2.7 - 3.8 cm LA Volume 54.1 cm??? 18 - 58 / 22 - 52 cm??? LA Volume Index 30.4 cm???/m??? 16 - 28 cm???/m??? DOPPLER AV Peak Velocity 167.5 cm/s AV Peak Gradient 11.2 mmHg AV Mean Velocity 110.7 cm/s AV Mean Gradient 5.5 mmHg AV Velocity Time Integral 34.7 cm AI Peak Velocity 414.6 cm/s AI Peak Gradient 68.8 mmHg AI Pressure Half Time 373.5 ms LVOT Peak Velocity 89.4 cm/s LVOT Peak Gradient 3.2 mmHg LVOT Velocity Time Integral 18.5 cm MR Peak Velocity 425.9 cm/s MR Peak Gradient 72.6 mmHg Mitral E Point Velocity 98.7 cm/s Mitral A Point Velocity 91.1 cm/s Mitral E to A Ratio 1.1 MV Deceleration Time 184.7 ms MV E' Velocity 9.3 cm/s Mitral E to MV E' Ratio 10.6 TR Peak Velocity 212.7 cm/s TR Peak Gradient 18.1 mmHg PV Peak Velocity 74.3 cm/s PV Peak Gradient 2.2 mmHg FINDINGS Left Ventricle Mildly increased septal wall thickness. Left ventricular ejection fraction is estimated at 50-55%.left ventricular cavity size normal. Right Ventricle Normal right ventricular size and function. Right Atrium Normal right atrial size. Left Atrium Mildly increased left atrial volume. Mitral Valve Mitral annular calcification. Vosu-ky-phlnuwxs mitral regurgitation. Aortic Valve Trileaflet aortic valve. mild aortic regurgitation.aortic valve sclerosis. Tricuspid Valve Structurally normal tricuspid valve. Nocx-wg-yseobtvu tricuspid regurgitation. Pulmonic Valve No pulmonic regurgitation. Pericardium No pericardial effusion. Prominent epicardial fat. Aorta Normal size aortic root and proximal ascending aorta. CONCLUSIONS 1. Left ventricle systolic function borderline normal 2. Gkwb-uz-ipcjyrmp mitral and tricuspid regurgitation 3. Mild aortic regurgitation Previewed by: Dr. Marc Sam MD (Electronically Signed) Final Date: 26 July 2023 17:48
== END | disposition home or self-care (01) ==
LOC: RADECHMAIN 14:18
PROVIDERS: ATTEND Family Medicine
DX: I34.0 Nonrheumatic mitral (valve) insufficiency (principal); I36.1 Nonrheumatic tricuspid (valve) insufficiency; I35.1 Nonrheumatic aortic (valve) insufficiency; I50.9 Heart failure, unspecified
CPT/HCPCS: 93306

== ENCOUNTER → 2023-08-15 | Outpatient (CLI) | payer MEDICARE ==
--- NOTE | 2023-08-17 14:15 | MM ---
Reason for Exam: Screening (asymptomatic). Last screening mammogram was performed 12 month(s) ago. Patient History: Menarche at age 20. First Full-Term at age 21. Left ovary removed at age 60. Right ovary removed at age 60. Hysterectomy at age 60. Postmenopausal. Patient used Hormonal Contraceptives for 2 years. Benign Cyst Aspiration on the left side. 04/11/2019, Benign Core Biopsy on the right side. 11/14/2002, Ultrasound-Guided Core Biopsy on the Left side. Risk Values: Hilary 5 year model risk: 1.7%. NCI Lifetime model risk: 4.8%. Prior Study Comparison: 06/03/2017 Bilateral Screening Mammogram, [facility]. 07/03/2018 Bilateral Screening Mammogram, [facility]. 03/21/2019 Bilateral Diagnostic Mammogram, [facility]. 04/11/2019 Right Diagnostic Mammogram, [facility]. 07/24/2020 Bilateral Diagnostic Mammogram, [facility]. 08/12/2021 Bilateral Screening Mammogram, [facility]. 08/13/2022 Bilateral MG 3D screening mammo w/cad, [facility]. Tissue Density: There are scattered areas of fibroglandular density. Findings: Analyzed By CAD. There is no suspicious group of microcalcifications or new suspicious mass. Right breast biopsy clip. There is no suspicious group of microcalcifications or new suspicious mass. Overall Assessment: Benign, BI-RAD 2 Management: Screening Mammogram of both breasts in [address] [facility] will attempt to contact patient to return for supplemental views and ultrasound if indicated. Patient should continue monthly self-breast exams. A clinical breast exam by your physician is recommended on an annual basis. This exam should not preclude additional follow-up of suspicious palpable abnormalities. Note on Hilary scores and lifetime risk: 1. A Hilary score greater than 3% is considered moderate risk. If this is the case, consider specialist referral to assess eligibility for a risk reducing agent. 2. If overall lifetime risk for the development of breast cancer is 20% or higher, the patient may qualify for future screening with alternating mammogram and breast MRI. Electronically signed and approved by: Freddie Lynne DO
== END | disposition home or self-care (01) ==
LOC: RADMAMWWP 13:33
PROVIDERS: ATTEND Family Medicine
DX: Z12.31 Encounter for screening mammogram for malignant neoplasm of breast (principal); Z78.0 Asymptomatic menopausal state
CPT/HCPCS: 77063; 77067

== ENCOUNTER 2023-09-21 10:58 | Day surgery (SDC) | payer MEDICARE ==
[2023-09-19 14:06] VITALS: BMI 30.8
[2023-09-21 12:00] VITALS: TEMP 97.6
[2023-09-21] MEDS: LACTATED RINGERS 1,000 ML IV SCH (12:01)
[2023-09-21] MEDS ORDERED: ONDANSETRON 4 MG/2 ML VIAL ONE (12:25)
[2023-09-21] MEDS: ONDANSETRON 4 MG/2 ML VIAL IVP ONE (12:33)
[2023-09-21] MEDS ORDERED: PROPOFOL 10 MG/ML 20 ML VIAL IV ONE (12:38)
[2023-09-21] MEDS ORDERED: LIDOCAINE 1% INJ 10MG/ML (20 ML MDV) ONE (12:38)
--- NOTE | 2023-09-21 12:54 | P.PCN ---
Date of Procedure: 09/21/23 Procedure(s) Performed: BRIEF HISTORY: Patient is a 73-year-old, pleasant, White female scheduled for an upper endoscopy as a part of evaluation of long-standing history of GERD for the last 5 years duration. She is on omeprazole 20 mg daily and symptoms are progressively getting worse in the last 1 year. PROCEDURE PERFORMED: Esophagogastroduodenoscopy with biopsy PREOPERATIVE DIAGNOSIS: Long-standing history of GERD IV sedation per anesthesia. PROCEDURE: After informed consent was obtained, the patient was brought into the endoscopy unit. IV sedation was administered by Anesthesia under continuous monitoring. Initially the Olympus GIF-140 video endoscope was inserted into the mouth. Esophagus intubated without any difficulty. It was gradually advanced into the stomach and duodenum and carefully examined. The bulb and the second part of the duodenum appeared normal. The scope at this time was withdrawn to the stomach, adequately insufflated with air, and upon careful examination, mucosa of the antrum,Had linear areas of erythema consistent with gastritis and biopsies were done from this area. 1 upper small gastric polyps noted which were biopsied. Mucosa of the body, cardia and the fundus appeared normal. The scope was then withdrawn into the esophagus. The GE junction was located at 39 cm from the incisors. The esophagus appeared normal. There were no erosions or ulcerations seen and the patient tolerated the procedure well. IMPRESSION: 1.Mild antral gastritis. 2.Multiple small gastric polyps status post biopsy. 3.No evidence of esophagitis or Pepe's esophagus RECOMMENDATIONS: The findings of this examination were discussed with the patient as well as a family. She was advised toFollow with the biopsies are spread continue with omeprazole 20 mg daily and follow antireflux measures. Follow up in office in 2-3 weeks.
[2023-09-21 13:26] VITALS: BP 137/63; PULSE 65; RESP 20
== END 2023-09-21 13:48 | disposition home or self-care (01) ==
LOC: ORWHC2ENDO 10:58
PROVIDERS: ATTEND Internal Medicine Gastroenterology
DX: K29.50 Unspecified chronic gastritis without bleeding (principal); K21.9 Gastro-esophageal reflux disease without esophagitis; K31.7 Polyp of stomach and duodenum; E07.9 Disorder of thyroid, unspecified; I11.0 Hypertensive heart disease with heart failure; I50.9 Heart failure, unspecified; Z86.718 Personal history of other venous thrombosis and embolism; Z86.711 Personal history of pulmonary embolism; Z98.890 Other specified postprocedural states; Z79.899 Other long term (current) drug therapy; Z88.0 Allergy status to penicillin
CPT/HCPCS: 88305; 43239; J2405; J2001; J2704

== ENCOUNTER → 2024-09-17 | Outpatient (CLI) | payer MEDICARE ==
[2024-09-17 19:56] LABS: BUN/Creat Ratio 30.83 Ratio (12.00-20.00); Blood Urea Nitrogen 18.5 mg/dL (9.0-27.0); Glucose 74 mg/dL (70-110)
[2024-09-17 19:57] LABS: Calcium 10.4 mg/dL (8.7-10.3); Carbon Dioxide 25.8 mmol/L (21.6-31.8); Chloride 106 mmol/L (96-109); Potassium 4.6 mmol/L (3.5-5.5); Sodium 144 mmol/L (135-145)
== END | disposition home or self-care (01) ==
LOC: LABWHC1 14:09
PROVIDERS: ATTEND Family Medicine
DX: I50.9 Heart failure, unspecified (principal); I26.99 Other pulmonary embolism without acute cor pulmonale; I82.512 Chronic embolism and thrombosis of left femoral vein; E55.9 Vitamin D deficiency, unspecified; E78.00 Pure hypercholesterolemia, unspecified; J20.8 Acute bronchitis due to other specified organisms; Z90.81 Acquired absence of spleen
CPT/HCPCS: 36415; 80048; 82306; 83970

== ENCOUNTER → 2024-09-24 | Outpatient (CLI) | payer MEDICARE ==
--- NOTE | 2024-09-25 07:15 | MM ---
Reason for Exam: Screening (asymptomatic). Last mammogram was performed 1 year(s) and 1 month(s) ago. Patient History: Menarche at age 20. First Full-Term at age 21. Left ovary removed at age 60. Right ovary removed at age 60. Hysterectomy at age 60. Postmenopausal. Patient used Hormonal Contraceptives for 2 years. Benign Cyst Aspiration on the left side. 04/11/2019, Benign Core Biopsy on the right side. 11/14/2002, Ultrasound-Guided Core Biopsy on the Left side. Risk Values: Hilary 5 year model risk: 1.7%. NCI Lifetime model risk: 4.5%. Prior Study Comparison: 08/12/2021 Bilateral Screening Mammogram, [facility]. 08/13/2022 Bilateral MG 3D screening mammo w/cad, [facility]. 08/15/2023 Bilateral MG 3D screening mammo w/cad, [facility]. Tissue Density: The breasts are heterogeneously dense, which may obscure small masses. Findings: Analyzed By CAD. There is no suspicious group of microcalcifications or new suspicious mass in either breast. Overall Assessment: Benign, BI-RAD 2 Management: Screening Mammogram of both breasts in 1 year. . Patient should continue monthly self-breast exams. A clinical breast exam by your physician is recommended on an annual basis. This exam should not preclude additional follow-up of suspicious palpable abnormalities. Note on Hilary scores and lifetime risk: 1. A Hilary score greater than 3% is considered moderate risk. If this is the case, consider specialist referral to assess eligibility for a risk reducing agent. 2. If overall lifetime risk for the development of breast cancer is 20% or higher, the patient may qualify for future screening with alternating mammogram and breast MRI. [facility], , 09/25/2024 7:11 AM. Electronically signed and approved by: Tommie Chaidez M.D. Radiologis
--- NOTE | 2024-09-25 07:15 | BD ---
EXAMINATION TYPE: Axial Bone Density DATE OF EXAM: 09/24/2024 CLINICAL HISTORY: 74 years old Female. ICD-10 CODE: Z78.0 POST GONZÁLEZ , Additional History: Height: 59.25 Weight: 167.5 FRAX RISK QUESTIONS: Alcohol (3 or more units per day): no Family History (Parent hip fracture): no Glucocorticoids (More than 3mos): no (Ex: prednisone, prednisolone, methylprednisolone, dexamethasone, and hydrocortisone). History of Fracture in Adulthood: no Secondary Osteoporosis: 1. Type 1 Diabetes: no 2. Hyperthyroidism: no 3. Menopause before 45: yes 4. Malnutrition: no 5. Chronic liver disease: no Rheumatoid Arthritis: no Current Tobacco Use: no RISK FACTORS HISTORY OF: Hip Fracture (Right/Left): no Spine Fracture: no History of Wrist Fracture: no Surgery to Spine/Hip(right/left)/Wrist (right/left): no MEDICATIONS: Thyroid Medications:no Osteoporosis Medications: no EXAM MEASUREMENTS: Bone mineral densitometry was performed using the Spot[employer] System. Bone mineral density as measured about the Lumbar spine is: ----- L1-L4(G/cm2): 1.297 T Score Values are as follows: ----- L1: -0.1 ----- L2: 0.7 ----- L3: 0.8 ----- L4: 2.0 ----- L1-L4: 1.0 Z Score Values are as follows: ----- L1: 1.3 ----- L2: 2.0 ----- L3: 2.2 ----- L4: 3.3 ----- L1-L4: 2.3 Bone mineral density has: increased 1.8 % since study of: 08/13/2022 Bone mineral density about the R hip (g/cm2): 0.952 Bone mineral density about the L hip (g/cm2): 0.924 T Score values are as follows: -----R Neck: -1.4 -----L Neck: -1.4 -----R Total: -0.4 -----L Total: -0.7 Z Score values are as follows: -----R Neck: 0.1 -----L Neck: 0.1 -----R Total: 0.9 -----L Total: 0.7 Bone mineral density has: decrease-8.7 % since study of: 08/13/2022 FRAX%s: The graph provided illustrates a 9.8% chance for a major osteoporotic fx and a 1.5% chance fo r the hips probability for fx in 10 years time. IMPRESSION: Normal (Values between +1 and -1 indicate normal bone mass). Consider repeating this study in 5 year s or sooner if there is some new clinical indication. NOTE: T-SCORE=SD OF THE YOUNG ADULT MEAN. [facility], , 09/25/2024 7:13 AM
== END | disposition home or self-care (01) ==
LOC: RADMAMWWP 14:57
PROVIDERS: ATTEND Family Medicine
DX: Z12.31 Encounter for screening mammogram for malignant neoplasm of breast (principal); R92.333 Mammographic heterogeneous density, bilateral breasts; Z78.0 Asymptomatic menopausal state; M85.89 Other specified disorders of bone density and structure, multiple sites; Z92.0 Personal history of contraception
CPT/HCPCS: 77063; 77067; 77080

== ENCOUNTER → 2024-10-19 | Outpatient (CLI) | payer MEDICARE ==
[2024-10-19 18:21] LABS: HCT 45.5 % (37.2-46.3); HGB 14.1 g/dL (12.0-15.0); MCH 28.4 pg (27.0-32.0); MCV 91.5 FL (80.0-97.0); Mean Platelet Volume 9.6 FL (9.5-12.2); NRBC Per 100 WBC 0 X 10*3/uL (0.00-0.01); Platelet Count 539 X 10*3/uL (140-440); RBC 4.97 X 10*6/uL (4.10-5.20); RDW 14.7 % (11.5-14.5)
[2024-10-19 18:57] LABS: Blood Urea Nitrogen 14.2 mg/dL (9.0-27.0); Carbon Dioxide 24.4 mmol/L (21.6-31.8); Chloride 104 mmol/L (96-109); Potassium 4.3 mmol/L (3.5-5.5); Sodium 142 mmol/L (135-145)
== END ==
LOC: LABPAT 14:06
PROVIDERS: ATTEND Internal Medicine
DX: Z01.812 Encounter for preprocedural laboratory examination (principal); R06.02 Shortness of breath
CPT/HCPCS: 80051; 82565; 84520; 85027

== ENCOUNTER → 2024-10-25 | Outpatient (CLI) | payer MEDICARE ==
--- NOTE | 2024-10-25 10:31 | XR ---
EXAMINATION TYPE: XR KUB DATE OF EXAM: 10/25/2024 10:26 AM CLINICAL INDICATION: Female, 74 years old with history of N20.1 CALCULUS OF URETER, pain TECHNIQUE: 2 supine views of the abdomen. COMPARISON: Abdominal x-ray February 24, 2023. FINDINGS: There are approximately 3 upper pole left renal calculi redemonstrated measuring up to 11 m m at L1-L2 disc space level. No definite right-sided nephrolithiasis. Overall nonobstructive bowel gas pattern. Osseous structures are intact. IMPRESSION: As above. [facility], , 10/25/2024 10:29 AM
== END | disposition home or self-care (01) ==
LOC: RADXRMAIN 10:11
PROVIDERS: ATTEND Urology
DX: N20.2 Calculus of kidney with calculus of ureter (principal)
CPT/HCPCS: 74018